=== PATIENT | male | born 1935 | race Caucasian/White ===

== ENCOUNTER 2016-10-30 15:20 | Emergency (ER) | payer OTHER ==
--- NOTE | ~2016-10-30 | CT4 ---
[facility] A Service of [facility] & [facility] RADIOLOGY TEXT RESULTS PATIENT: SENDY MENARD LOCATION: [facility] : 35 UNIT #: [id number] AGE: [address]: Ari Zelaya DO SEX: M ORDER DR: [id number] [facility] [address] [place], [place] [address] [id number] E MR#: [id number] Acc #: [id number] NAME: SENDY MENARD : 1935 SEX: M STUDY DATE/TIME: 10/30/2016 19:57 UNIT: [facility] ROOM: STUDY DESCRIPTION: CT Abd and Pelv Wo Cont Attending Physician: Ari Zelaya D.O. Ordering Physician: Ari Zelaya D.O. Primary Care Physician: Paul Ibrahim M.D. MEDICAL IMAGING REPORT This report is preliminary unless electronic signature is present EXAM CT abdomen and pelvis without contrast, 10/30/16, 1957 hours. CLINICAL HISTORY 81-year-old man with upper anterior abdominal pain for [address] abdomen and pelvis, 07/13/15. TECHNIQUE Helical noncontrasted images were obtained from the lung bases through the pubic symphysis. No intravenous contrast was administered. Oral contrast was ingested. Sagittal and coronal reconstructions were performed. Total exam DLP 606 mGy-cm. This CT exam was performed with one or more of the following radiation dose reduction techniques: automatic exposure control, adjustment of mA and/or kV according to patient size, and iterative reconstruction. FINDINGS Images through the lung bases demonstrate underlying emphysematous change. There is no acute pulmonary density or pleural effusion. The distal esophagus is normal. FINDINGS Images through the abdomen demonstrate a normal appearance to the liver, spleen, pancreas and bile ducts. Gallbladder demonstrates a punctate stone or stones similar to prior study. There is no definite gallbladder wall thickening or pericholecystic fluid. The adrenal glands are normal. Noncontrasted images through the kidneys demonstrate no mass, stone or distension. There is atherosclerotic change diffusely in the abdominal aorta and its branches. There is no definite aneurysm. There is very coarse calcification at the left greater than right common iliac arteries. [facility] A Service of [facility] & [facility] RADIOLOGY TEXT RESULTS PATIENT: SENDY MENARD LOCATION: [facility] : 35 UNIT #: [id number] AGE: [address]: Ari Zelaya DO SEX: M ORDER DR: Significant stenosis cannot be excluded. The stomach is well-opacified and distended. No gastric wall thickening is seen. The question is raised of wall thickening at the gastroduodenal junction. This could be due to lack of distension; however, underlying ulcer disease or duodenitis cannot be excluded. Contrast does pass through the duodenum into nondilated small bowel distally. There is unopacified small bowel near the cecum. There is no wall thickening. No evidence of appendicitis. No colonic wall thickening. There are scattered colonic diverticula but no evidence of diverticulitis. CT pelvis demonstrates a normal appearance to the bladder. Prostate gland is enlarged measuring 6.2 x 4.7 x 5.5 cm. No discrete mass is seen. There is no definite hernia seen. There is a loop of small bowel closely apposed to the umbilicus. A small effusion in this area cannot be excluded, however, there is no distension of small bowel. IMPRESSION 1. There are no definite acute findings. There is cholelithiasis without evidence of cholecystitis. 2. Question is raised of wall thickening at the junction of the stomach and duodenum extending into the first and second portion of the duodenum. There is contrast within this area and it is moderately well distended yet the wall does appear prominent. This could indicate underlying duodenitis or perhaps underlying ulcer disease. There is no fluid or free air. 3. Normal pancreas. 4. Mild diverticulosis without evidence of diverticulitis. 5. Atherosclerotic changes of the abdominal aorta and its branches. There are very coarse calcifications at the origins of both common iliac arteries. Significant stenosis cannot be excluded. STAT * RESULT Dictated by... Vashti Haider M.D. THIS IS AN ELECTRONICALLY VERIFIED REPORT Vashti Haider M.D. at 10/30/2016 9:01 PM Hayden TD: 10/30/2016 20:17 JOB #: [id number] MEDICAL IMAGING REPORT Page 1 of 1 COPY
[~2016-10-30 15:20] MED LIST: BIOTIN1000 MCG; FISH OIL 1,0001 EAC3 PO; HAIR, SKIN & N1 EAC1 PO; LIPITOR20 MG PO; MEDROL DOSEPAK4 MG DOB; PRILOSEC PO; PRILOSEC20 M1 PO; TRAMADOL HCL50 M1 PO; VIT B-12 PO
[2016-10-30 16:47] LABS: BASOPHIL# 0.1 X10e3 (0-0.3); BASOPHIL% 0.6 % (0-2.5); EOSINOPHIL# 0.5 X10e3 (0-0.7); EOSINOPHIL% 3.9 % (0.0-7.0); HEMATOCRIT 41.4 % (38.0-50.0); HEMOGLOBIN 13.4 gm/dL (13.0-16.0); LYMPHOCYTE# 1.5 X10e3 (1.0-3.5); LYMPHOCYTE% 12.4 % (17.0-45.0); MEAN CELL VOLUME 87.5 FL (83-96); MEAN CORPUSCULAR HEMOGLOBIN 28.4 PG (28-34); MEAN CORPUSCULAR HGB CONC 32.4 g/dL (30-36); MEAN PLATELET VOLUME 9.2 FL (6.5-11.5); MONOCYTE# 1.1 X10e3 (0-1.0); MONOCYTE% 9.5 % (3.0-12.0); NEUTROPHIL# 8.6 X10e3 (1.5-7.1); NEUTROPHIL% 73.6 % (40-75); PLATELET COUNT 260 X10e3 (140-420); RED BLOOD COUNT 4.73 X10e (3.90-5.60); RED CELL DISTRIBUTION WIDTH 13.6 % (11.0-15.5); WHITE BLOOD COUNT 11.7 X10e3 (4.0-10.5)
[2016-10-30 16:54] LABS: URINE SOURCE CLEAN CATCH
[2016-10-30 16:57] LABS: DIFF IND NO
[2016-10-30 16:59] LABS: URINE APPEARANCE CLEAR; URINE BILIRUBIN NEG (NEG); URINE BLOOD NEG (NEG); URINE COLOR YELLOW; URINE GLUCOSE NEG (NEG); URINE KETONE TRACE (NEG); URINE LEUKOCYTE ESTERASE NEG (NEG); URINE NITRATE NEG (NEG); URINE PH 6.5 (5-8); URINE PROTEIN NEG (NEG); URINE SPECIFIC GRAVITY 1.024 (1.003-1.035)
[2016-10-30 17:02] LABS: POC - CKMB 2.8 ng/mL (0.0-7.9); POC - TROPONIN <0.05 ng/mL (<=0.05)
[2016-10-30 17:06] LABS: CULTURE INDICATED? NO
[2016-10-30 17:10] LABS: ALBUMIN SERUM 4.1 g/dL (3.5-5.0); ALKALINE PHOSPHATASE 102 U/L (32-92); ALT (SGPT) 24 U/L (10-40); AST (SGOT) 24 U/L (10-42); BILIRUBIN, DIRECT <0.1 mg/dL (0.0-0.2); BILIRUBIN,INDIRECT 0.5 mg/dL (0.0-0.9); BILIRUBIN,TOTAL 0.6 mg/dL (0.2-2.0); BLOOD UREA NITROGEN 30 mg/dL (9-23); BUN/CREATININE RATIO 23.07; CALCIUM SERUM 9.7 mg/dL (8.4-10.2); CARBON DIOXIDE 23 mmol/L (22-31); CHLORIDE 104 mmol/L (100-111); CREATININE SERUM 1.3 mg/dL (0.6-1.4); GLOM FILT RATE Estimated 51.2 mL/min (>60); GLUCOSE FASTING 106 mg/dL (70-110); LIPASE 27 U/L (22-51); POTASSIUM 4.5 mmol/L (3.5-5.1); PROTEIN TOTAL SERUM 7.8 g/dL (6.0-8.3); SODIUM 136 mmol/L (135-145)
== END 2016-10-30 22:00 | disposition home or self-care (01) ==
LOC: CED 15:20
PROVIDERS: Emergency Medicine
DX: R10.84 Generalized abdominal pain (principal); E78.5 Hyperlipidemia, unspecified; J44.9 Chronic obstructive pulmonary disease, unspecified; Z88.0 Allergy status to penicillin; Z98.890 Other specified postprocedural states
CPT/HCPCS: 36415; 74176; 80048; 80076; 81003; 82553; 83605; 83690; 84484; 85025; 96374; 96375; 99284; J2270; J2405

== ENCOUNTER 2016-11-04 12:05 | Inpatient (IN) | payer OTHER ==
--- NOTE | ~2016-11-04 | CR72 ---
[facility] A Service of [facility] & [facility] RADIOLOGY TEXT RESULTS PATIENT: SENDY MENARD LOCATION: [address] : 35 UNIT #: [id number] AGE: [address]: Jaylen Canada MD SEX: M ORDER DR: [id number] [facility] [address] [place], [place] [address] [id number] I MR#: [id number] Acc #: [id number] NAME: SENDY MENARD. : 1935 SEX: M STUDY DATE/TIME: 11/10/2016 5:46 UNIT: [facility] ROOM: [facility] STUDY DESCRIPTION: CR Chest Single View Portable Attending Physician: Jaylen Canada M.D. Ordering Physician: Porter Glez M.D. Primary Care Physician: Paul Ibrahim M.D. MEDICAL IMAGING REPORT This report is preliminary unless electronic signature is present EXAM Portable AP view of the chest COMPARISON November 09, 2016, November 07, 2016, November 06, 2016 INDICATIONS 81-year-old male with respiratory failure for 6 days. Ongoing sepsis requiring ventilatory support. Endotracheal tube placement. FINDINGS AND IMPRESSION Endotracheal tube appears grossly stable with the tip located approximately 3.3 cm above the clair. Right internal jugular catheter is grossly stable with the tip terminate in the lower SVC. Cardiomediastinal silhouette is stable and within normal limits. No convincing evidence of pneumothorax or pleural effusion. There is slight increased interstitial prominence in the left lung base possibly technical in nature, or reflective of mild atelectasis or bronchovascular crowding. Dictated by... Franco Shaw M.D. THIS IS AN ELECTRONICALLY VERIFIED REPORT Franco Shaw M.D. at 11/16/2016 7:23 AM Melissa TD: 11/10/2016 07:26 JOB #: [id number] MEDICAL IMAGING REPORT Page 1 of 1 COPY
--- NOTE | ~2016-11-04 | CT71 ---
[facility] A Service of [facility] & [facility] RADIOLOGY TEXT RESULTS PATIENT: SENDY MENARD LOCATION: [address] : 35 UNIT #: [id number] AGE: [address]: Jaylen Canada MD SEX: M ORDER DR: [id number] [facility] [address] [place], [place] [address] [id number] I MR#: [id number] Acc #: [id number] NAME: SENDY MENARD. : 1935 SEX: M STUDY DATE/TIME: 11/10/2016 9:49 UNIT: [facility] ROOM: [facility] STUDY DESCRIPTION: CT Head Wo Contrast Attending Physician: Jaylen Canada M.D. Ordering Physician: Terrence Murry M.D. Primary Care Physician: Paul Ibrahim M.D. MEDICAL IMAGING REPORT This report is preliminary unless electronic signature is present EXAM CT head 11/10/2016 HISTORY Cardiac arrest 11/09/2016. Then, right upper quadrant pain since 11/06/2016. TECHNIQUE CT head performed skull base through vertex without intravenous contrast. This CT exam was performed with one or more of the following radiation dose reduction techniques: automatic exposure control, adjustment of mA and/or kV according to patient size, and iterative reconstruction. COMPARISON Comparison 10/05/2013. FINDINGS Study degraded by streak artifact from monitoring equipment overlying the patient (not removed prior to examination). The brainstem is unremarkable. The cerebellum and cerebral hemispheres show normal weaver matter-white matter differentiation. No hemorrhage. No evidence of acute cortical ischemia. Midline structures are nondisplaced. The basal ganglia are intact. The ventricles, cisterns and sulci show mild generalized enlargement consistent with mild generalized atrophy. No intra- or extraaxial mass effect or abnormal intracranial fluid collections. Cavernous carotid and distal vertebral arterial calcifications. There is oral intubation. Intraorbital soft tissues unremarkable. No fracture. Air-fluid levels, bilateral frontal sinuses. Extensive opacification of ethmoid air cells. Prominent air-fluid levels, bilateral maxillary and sphenoid sinuses. Some air-fluid levels in the mastoid air cells as well. No acute-appearing bony abnormality. IMPRESSION [facility]. [facility] A Service of [facility] & [facility] RADIOLOGY TEXT RESULTS PATIENT: SENDY MENARD LOCATION: [facility] CICCU2-03 : 35 UNIT #: [id number] AGE: [address]: Jaylen Canada MD SEX: M ORDER DR: 1. No acute abnormality is seen in the brain. If the patient has ongoing neurologic symptoms, consider follow up imaging, preferably with MRI, if the patient is a candidate. 2. Mild generalized atrophy. 3. Cavernous carotid and distal vertebral arterial calcifications. 4. Air-fluid levels throughout the visualized paranasal sinuses. Tiny air-fluid levels in bilateral mastoid air cells. Correlate with any clinical indications of inflammation/sinusitis. Dictated by... Brandan Hawthorne M.D. THIS IS AN ELECTRONICALLY VERIFIED REPORT Brandan Hawthorne M.D. at 11/11/2016 6:12 PM MASHA/adam TD: 11/10/2016 11:20 JOB #: [id number] MEDICAL IMAGING REPORT Page 1 of 1 COPY
--- NOTE | ~2016-11-04 | EKG ---
PATIENT: SENDY MENARD UNIT #: [id number] Ventricular Rate: 106 BPM Atrial Rate: 106 BPM P-R Interval: 200 ms QRS Duration: 76 ms Q-T Interval: 298 ms QTC Calculation(Bezet): 395 ms P Midland: 75 degrees Calculated R Midland: 65 degrees Calculated T Mid[place]: 65 degrees Diagnosis Line: Sinus tachycardia Diagnosis Line: Low voltage QRS Diagnosis Line: Borderline ECG Diagnosis Line: When compared with ECG of 11-NOV-2016 06:25, Diagnosis Line: (unconfirmed) Diagnosis Line: No significant change was found Diagnosis Line: Confirmed by RENE DICKSON MD ([id number]) on Diagnosis Line: 11/12/2016 4:14:21 PM INTERPRETING MD: EYAL
--- NOTE | ~2016-11-04 | CO ---
Unit #: [id number] #: [id number] Patient: SENDY MENARD [id number] [address] [address] [id number] I MR#: [id number] NAME: SENDY MENARD. ROOM: [facility] Age: 81 Sex: M Admission Date: 11/04/2016 : 1935 Attending Physician: Jaylen Canada M.D. Primary Care Physician: Paul Ibrahim M.D. CONSULTATION REPORT REASON FOR CONSULTATION Critical care management. HISTORY OF PRESENT ILLNESS The patient is an 81-year-old male who presented to the hospital with a complaint of abdominal pain and decreased p.o. intake. He was diagnosed with acute cholecystitis and cholelithiasis and underwent open cholecystectomy. The patient is currently on a ventilator. I am seeing him at the bedside. He is sedated and intubated. PAST MEDICAL HISTORY 1. Incarcerated abdominal hernia. 2. Goodman esophagus. 3. Diverticulosis. 4. Bronchitis. 5. Arthritis. 6. Chronic obstructive pulmonary disease. SOCIAL HISTORY Smoker. Drinks alcohol. FAMILY HISTORY None as per record. ALLERGIES Penicillin causing rashes. CURRENT MEDICATIONS 1. Lipitor. 2. Bentyl. 3. B12. 4. Fish oil. 5. Vancomycin. 6. Flagyl. 7. Lopressor. 8. Protonix. 9. Lipitor. REVIEW OF SYSTEMS Unobtainable. PHYSICAL EXAMINATION VITALS: Temperature 98, pulse 67, respiratory rate 16, blood pressure 131/40. Unit #: [id number] #: [id number] Patient: SENDY MENARD HEENT: Pupils equally round and reactive to light and accommodation. NECK: Supple. No jugular venous distension. CHEST: Bilateral air entry. Bilateral mild rhonchi. ABDOMEN: Nontender and soft. Bowel sounds positive. EXTREMITIES: No edema. SKIN: No rashes. No ulcers. LYMPH: No lymphadenopathy. NEUROLOGIC: Awake, alert and oriented. No neurologic deficits. DIAGNOSTIC STUDIES IMAGING: Chest x-ray showed no infiltrates or effusion. LABORATORY: Blood gas, pH 7.12, pCO2 62, pO2 498. Creatinine 2.1, sodium 130, potassium 5.3. White blood cell count 20, hemoglobin 11, hematocrit 36, platelets 372. ASSESSMENT Acute postoperative respiratory failure. Metabolic and respiratory acidosis status post cholecystectomy. Sepsis. Acute kidney injury. PLAN Admit the patient. IV fluids as per nephrology. Broad spectrum IV antibiotics. GI and DVT prophylaxis. Bronchodilator. Sedation as per protocol. The patient will be closely monitored. Please see orders for detailed plan. Thank you very much for this consultation. We will continue to monitor the patient. Dictated by... Fela Edwards/nikki TD: 11/06/2016 08:07 JOB #: [id number] CONSULTATION REPORT Page 1 of 1 X Porter Glez MD X CONSULTATION REPORT
--- NOTE | ~2016-11-04 | CO ---
Unit #: [id number] #: [id number] Patient: SENDY MENARD [id number] [address] [place], [place] [address] [id number] I MR#: [id number] NAME: SENDY MENARD. ROOM: [facility] Age: 81 Sex: M Admission Date: 11/04/2016 : 1935 Attending Physician: Jaylen Canada M.D. Primary Care Physician: Paul Ibrahim M.D. Consultation Date: 11/04/2016 CONSULTATION REPORT REASON FOR CONSULTATION Preop surgical clearance. HISTORY OF PRESENT ILLNESS This is an 81-year-old white male with a prior medical history of high cholesterol and ventral hernia repair with mesh in 04/2016. He was evaluated in the ER several days ago for right upper quadrant abdominal pain, where a CT of the abdomen revealed cholelithiasis and cholecystitis as well as mild diverticulosis. He returned to the ER today with complaints of increasing abdominal pain and nausea. There are plans to proceed with cholecystectomy. He denies a prior history of cardiac disease. Denies hypertension or diabetes mellitus. He is a reformed smoker of 1 pack per day, who quit about 10 to 15 years ago. Reports he does have recurrent bronchitis. Denies chest pain, tightness, or pressure. Denies palpitations. PAST MEDICAL HISTORY 1. Hyperlipidemia. 2. Bronchitis. 3. Benign polyps. 4. Goodman esophagus. 5. GERD. PAST SURGICAL HISTORY 1. Open umbilical hernia repair with mesh in 04/2016. 2. EGD and colonoscopy in 09/2015. 3. Right arm fracture repair. SOCIAL HISTORY Reformed smoker, quit 10 to 15 years ago. He does drink alcohol approximately 3 to 4 beers a week. Denies illicit drug use. FAMILY HISTORY Brother, age 71, had an MO in his 60s. ALLERGIES Penicillin. HOME MEDICATIONS Lipitor 20 mg p.o. daily, Bentyl 10 mg p.o. q.i.d. as needed for stomach pain, fish oil 300 mg p.o. daily, and vitamin B 1 tab p.o. daily. Unit #: [id number] #: [id number] Patient: SENDY MENARD REVIEW OF SYSTEMS Positive for intermittent shortness of air. Positive for nausea and decreased appetite. Negative for chest pain, tightness, or pressure. Negative for palpitations. Positive for bilateral calf pain with activity. PHYSICAL EXAMINATION VITAL SIGNS: Temperature 97.9, heart rate 95, respiratory rate 20, blood pressure 127/74, height 68 inches, and weight 70 kg. GENERAL: This is a pleasant 81-year-old male, resting in bed, in no acute distress. HEENT: Head is atraumatic and normocephalic. Pupils are equal and round. Mucous membranes are moist. NECK: Supple. Trachea is midline. No carotid bruits. Negative for JVD. LUNGS: Clear and diminished in bases. Nonlabored respirations. CARDIOVASCULAR: S1, S2. Normal size. Regular rate and rhythm. No significant murmurs, rubs, or gallops heard. ABDOMEN: Soft, tender in right upper quadrant. Diffuse bowel sounds. EXTREMITIES: Absent pedal pulses on the right. Normal pedal pulses on the left. No pedal edema. No cyanosis. NEUROLOGIC: Alert and oriented x3. Moves all extremities equally and follows commands without difficulty. DIAGNOSTIC STUDIES LABORATORY RESULTS: Sodium 131, potassium 4.1, chloride 93, BUN 49, creatinine 2, and glucose 172. Hemoglobin 11.7, hematocrit 36.3, white blood cell count 20.3, and platelets 203. AST 21, ALT 14, and alkaline phosphatase 74. IMAGING STUDIES: Chest x-ray shows hyperinflation with scattered calcified granulomatous changes. Ultrasound of the gallbladder shows a sludge with tiny gallstones. CARDIOVASCULAR STUDIES: EKG shows normal sinus rhythm with nonspecific T-wave abnormalities in inferior leads and poor R-wave progression. ASSESSMENT 1. Acute cholecystitis. 2. Chronic obstructive pulmonary disease. 3. Hyperlipidemia. 4. Acute kidney injury. PLAN 1. Okay to proceed with surgery with a moderate, but acceptable risk from a cardiovascular standpoint. 2. IV fluids, elevated creatinine could be due to dehydration. 3. Continue statins. 4. Plan for Lexiscan Cardiolite stress test after recovery from surgery. Thank you for asking us to see this patient. We appreciate the consult. Dictated by... Shirin Reyez APRN for Fela Zapata/jen TD: 11/06/2016 08:51 JOB #: [id number] Unit #: [id number] #: [id number] Patient: SENDY MENARD CONSULTATION REPORT Page 1 of 1 X X CONSULTATION REPORT
--- NOTE | ~2016-11-04 | CR72 ---
[facility] A Service of [facility] & [facility] RADIOLOGY TEXT RESULTS PATIENT: SENDY MENARD LOCATION: [facility] : 35 UNIT #: [id number] AGE: [address]: Paul Lopez MD SEX: M ORDER DR: [id number] [facility] [address] [place], [place] [address] [id number] E MR#: [id number] Acc #: [id number] NAME: SENDY MENARD : 1935 SEX: M STUDY DATE/TIME: 11/04/2016 UNIT: [facility] ROOM: STUDY DESCRIPTION: CR Chest Single View Portable Attending Physician: Paul Lopez M.D. Ordering Physician: Paul Lopez M.D. Primary Care Physician: Paul Ibrahim M.D. MEDICAL IMAGING REPORT This report is preliminary unless electronic signature is present EXAM Chest portable 11/04/2016 1252 hours. HISTORY 81-year-old man with shortness of air for 1 week. History of COPD. COMPARISON 08/13/2014 FINDINGS Portable upright chest demonstrates normal cardiac, mediastinal and hilar contours. The lungs are hyperinflated with stable calcified granulomata. No definite acute pulmonary density or pleural effusion. IMPRESSION Stable pulmonary hyperinflation with scattered calcified granulomatous changes. No definite pneumonia, edema or pleural effusions seen. Dictated by... Vashti Haider M.D. THIS IS AN ELECTRONICALLY VERIFIED REPORT Vashti Haider M.D. at 11/04/2016 5:41 PM Maryanne TD: 11/04/2016 15:42 JOB #: [id number] MEDICAL IMAGING REPORT Page 1 of 1 COPY
--- NOTE | ~2016-11-04 | CR71 ---
[facility] A Service of [facility] & [facility] RADIOLOGY TEXT RESULTS PATIENT: SENDY MENARD LOCATION: [facility] CICCU2-10 : 35 UNIT #: [id number] AGE: [address]: Jaylen Canada MD SEX: M ORDER DR: [id number] [facility] [address] [place], [place] [address] [id number] I MR#: [id number] Acc #: [id number] NAME: SENDY MENARD. : 1935 SEX: M STUDY DATE/TIME: 11/05/2016 14:42 UNIT: [facility] ROOM: 471 STUDY DESCRIPTION: CR Chest Single View Attending Physician: Jaylen Canada M.D. Ordering Physician: Rusty Patino M.D. Primary Care Physician: Paul Ibrahim M.D. MEDICAL IMAGING REPORT This report is preliminary unless electronic signature is present EXAM Portable chest HISTORY Shortness of air today. ETT placement. FINDINGS ETT tip is 3.5 cm above the clair. Cardiac and mediastinal contours are within normal limits and stable compared to earlier today. No infiltrates or effusions are identified. Dictated by... Jason Arellano M.D. THIS IS AN ELECTRONICALLY VERIFIED REPORT Jason Arellano M.D. at 11/05/2016 11:10 PM BEHZAD/jerry TD: 11/05/2016 16:43 JOB #: [id number] MEDICAL IMAGING REPORT Page 1 of 1 COPY
--- NOTE | ~2016-11-04 | OR ---
Unit #: [id number] #: [id number] Patient: SENDY MENARD T [id number] [address] [place], [place] [address] [id number] MR#: [id number] NAME: SENDY MENARD ROOM: [facility] Date of Procedure: 11/09/2016 Admission Date: 11/04/2016 Surgeon: Paul Medrano M.D. : 1935 Attending Physician: Jaylen Canada M.D. Primary Care Physician: Paul Ibrahim M.D. OPERATIVE REPORT PREOPERATIVE DIAGNOSIS Acute upper gastrointestinal bleed resulting in cardiac arrest. POSTOPERATIVE DIAGNOSES Thrombus in the cardia, fundus, and antrum of the stomach. No active bleeding seen. Mucosal abnormality of the distal esophagus. ANESTHESIA The patient was on fentanyl sedation. INDICATIONS FOR PROCEDURE An 81-year-old gentleman, the patient on the floor and had a cardiac arrest during the resuscitation when he was intubated, he vomited bright red blood. Labs at that time showed a hemoglobin of 6.5. On admission, his hemoglobin was 13.8. His coags were noted to be normal. He was resuscitated and brought to the intensive care unit. He is now hemodynamically stabilized, but he is requiring pressor agent. We plan on doing an urgent endoscopy to see if there is an active bleeding site that could be controlled. DESCRIPTION OF PROCEDURE The patient was seen in ICU bed 3. He was intubated and sedated. I flushed his NG tube until I could not get back any further bloody drainage and then removed the NG tube. The endoscope was passed through the oral cavity and under direct vision, we identified the esophagus, passed through the esophagus into the stomach. Upon insufflating the stomach, there was thrombus from the cardia down into the antrum, and through the pylorus to the duodenal bulb. On careful inspection of all mucosal surfaces, no active bleeding or bleeding source could be identified. There was no free fluid. It was all thrombus at this time. I decompressed the stomach by suctioning out all the air and as I came back in the distal esophagus, there was some mucosal abnormalities and the patient does have a history of Goodman mucosa, but at this time in the acute situation, we did not do any biopsies. The larynx was not visualized, but the endotracheal tube was well positioned. The patient will be left in the ICU and continued resuscitation undertaken. We will plan on repeating an EGD in 48 hours after the bleeding is stabilized and hopefully the clot has begun to mobilize. Dictated by... Unit #: [id number] #: [id number] Patient: SENDY MENARD Fela Kimball/jen TD: 11/10/2016 05:18 JOB #: [id number] OPERATIVE REPORT Page 1 of 1 X Paul Medrano MD X PROCEDURE OPERATIVE NOTE
--- NOTE | ~2016-11-04 | A ---
[facility] Nutrition Therapy DATE: 11/06/16 Patient: SENDY MENARD Physician: SABINO Address: [address] [place] [address] Room/Bed: [address], Zip: [place] [address] Admit Date: 11/04/16 Date of : 35 Height: 5 8 Weight: 154 70 NUTRITIONAL ASSESSMENT: REASON: NPO IN ICU, ON VENT PATIENT ADMITTED FOR ABDOMINAL PAIN, CHOLECYSTITIS, CHOLELITHIASIS PMH: ESOPHAGITIS, DIVERTICULOSIS, HLD, COPD Anthropometrics: HT: 68", WT: 154#, BMI: 23.4 Labs: 11/06/16- GLU: 154, BUN: 60, CREA: 2.8, CA: 7.5, ALB: 1.9, GFR: 20.2 Meds: VANCOMYCIN, NACL, 5% DEXTROSE, VERSED, MORPHINE I/O & Bowel function: 4080/1805 Skin Integrity: INTACT Estimated Nutrition Needs: KCAL: 25-30KCAL/KG (1880-8813) PROTEIN: 1.0-1.2GM/KG (70-84) FLUIDS: 1ML/KCAL OR PER MD ORDERS Assessment: PATIENT IS AN 81 Y/O MALE ADMITTED FOR ABDOMINAL PAIN, CHOLECYSTITIS, AND CHOLELITHIASIS. PATIENT IS S/P CHOLECYSTECTOMY AND HAD ACUTE POST-OP RESPIRATORY FAILURE, METABOLIC AND RESPIRATORY ACIDOSIS, SEPSIS, AND ALYX. HE IS CURRENTLY ON THE VENTILATOR IN THE ICU. PATIENT HAD FAMILY AT BEDSIDE THAT STATED PATIENT HAD A ~15# WEIGHT LOSS OVER LAST 2-3 WEEKS D/T DECREASED APPETITE AND PO INTAKES. PATIENT DOES NOT HAVE ANY SKIN BREAKDOWN ATT. PRIOR TO ADMIT PATIENT HAD BEEN AMBULATORY AND A/O X3. DISCUSSED PATIENT WITH NURSING AND DR. MCGINNIS. IT IS UNCLEAR IF PATIENT WILL NEED ENTERAL NUTRITION INTERVENTION ATT, HOWEVER PLEASE SEE BELOW FOR RECOMMENDATIONS IF NECESSARY. Dx: INADEQUATE NUTRIENT INTAKE R/T CURRENT CONDITION AEB NPO STATUS Intervention: NPO DIET, MEDS/FLUIDS PER , RD ASSESSMENT Monitoring, Evaluation and Goals: 1. PREVENT, CORRECT MICRO/MACRO NUTRIENT DEFICIENCIES 2. INITIATE ENTERAL NUTRITION IF NECESSARY MONITOR: WEIGHTS, LABS, I/Os [facility] Nutrition Therapy DATE: 11/06/16 Patient: SENDY MENARD Physician: SABINO Address: [address] [place] [address] Room/Bed: [address], Zip: [place] [address] Admit Date: 11/04/16 Date of : 35 Height: 5 8 Weight: 154 70 Recommendations: 1. IF ENTERAL NUTRITION WARRANTED BEGIN ALTERNATIVE NUTRITION SUPPORT OF JEVITY 1.5 @ 20ML/HR. ADVANCE 10ML Q 6 HOURS TO A GOAL RATE OF 55ML/HR -PROVIDES: 1980 KCALS / 84GM PROTEIN / 1003ML FLUID -ADD FREE WATER FLUSHES OF 175ML Q 4 HOURS OR PER MD ORDERS 2. IF PATIENT EXTUBATED, ONCE MEDICALLY FEASIBLE ADVANCE DIET TOLERATED RD TO F/U PER PROTOCOL AND PRN R/T PATIENT MOD/SEVERELY COMPROMISED Respectfully, LISA DOMINGUEZ, RD, LD Food and Nutritional Services [facility] cc: client file
--- NOTE | ~2016-11-04 | OR ---
Unit #: [id number] #: [id number] Patient: SENDY MENARD [id number] [address] [place], [place] [address] [id number] Nasra MR#: [id number] NAME: SENDY MENARD. ROOM: [facility] Date of Procedure: 11/05/2016 Admission Date: 11/04/2016 Surgeon: Brandan Day M.D. : 1935 Attending Physician: Jaylen Canada M.D. Primary Care Physician: Paul Ibrahim M.D. OPERATIVE REPORT PREOPERATIVE DIAGNOSIS Acute cholecystitis. POSTOPERATIVE DIAGNOSIS Perforated gallbladder with extrahepatic abscess. PROCEDURES PERFORMED 1. Diagnostic laparoscopy. 2. Drainage of extrahepatic abscess. 3. Laparoscopic cholecystectomy. SCUBA DIVER None. ANESTHESIA General endotracheal anesthesia. ESTIMATED BLOOD LOSS 50 mL. IV FLUIDS 1 L crystalloid. COMPLICATIONS None. INDICATIONS FOR PROCEDURE The patient is an 81-year-old gentleman who presents with right upper quadrant abdominal pain. Signs and symptoms were consistent with acute cholecystitis. DESCRIPTION OF PROCEDURE The patient was taken to the operating theater and placed in supine position. General anesthesia was induced. His abdomen was prepped and draped. A 5-mm Optiview trocar was placed in the right upper quadrant without difficulty. The abdomen was insufflated to 15 mmHg with CO2. Under direct vision, I placed a 5-mm port at the umbilicus. It came obvious that this was a perihepatic situation. There was bile staining what appeared to be an abscess over the dome of the liver. As we break this up using a laparoscopic instrument, I identified what appeared to be a perforation in the dome of the gallbladder. I placed a subxiphoid 10 mm, right lateral 5 mm port. The gallbladder was retracted up over the Unit #: [id number] #: [id number] Patient: SENDY MENARD liver. We dissected the gallbladder out. I identified the cystic duct. Its junction with the gallbladder was confirmed. It was thus skeletonized, doubly hemoclipped and divided. The cystic artery laid immediately posterior. This was skeletonized, doubly hemoclipped and divided. The gallbladder was removed from the gallbladder bed. Bovie electrocautery placed into an Endobag and removed. I then irrigated thoroughly with normal saline and aspirate all fluids dry. Cody-Marie drain was then placed in the bed of the liver. Dictated by... Fela Beckett/jen TD: 11/05/2016 23:08 JOB #: [id number] OPERATIVE REPORT Page 1 of 1 X Bradnan Day MD X PROCEDURE OPERATIVE NOTE
--- NOTE | ~2016-11-04 | EKG ---
PATIENT: SENDY MENARD UNIT #: [id number] Ventricular Rate: 126 BPM Atrial Rate: 125 BPM QRS Duration: 68 ms Q-T Interval: 300 ms QTC Calculation(Bezet): 434 ms Calculated R [place]: 57 degrees Calculated T [place]: 77 degrees Diagnosis Line: Sinus tachycardia Diagnosis Line: Low voltage QRS Diagnosis Line: Nonspecific ST abnormality Diagnosis Line: Abnormal ECG Diagnosis Line: When compared with ECG of 04-NOV-2016 12:57, Diagnosis Line: QRS voltage has decreased Diagnosis Line: ventricular rate is faster Diagnosis Line: Confirmed by LISA JAMES MD ([id number]) on 11/10/2016 Diagnosis Line: 7:38:03 AM INTERPRETING MD: ERIKA CAIN
--- NOTE | ~2016-11-04 | FU ---
[facility] Nutrition Therapy DATE: 11/11/16 Patient: SENDY MENARD Physician: SABINO Address: [address] [place] [address] Room/Bed: [address], Zip: [place] [address] Admit Date: 11/04/16 Date of : 35 Height: 5 8 Weight: 174 79 NUTRITION MONITORING/FOLLOW-UP: Reason: PT SEEN FOR TPN EVAL/FOLLOW-UP DX: ABD PAIN, CHOLECYSTITIS Anthropometrics: 5'8", WT: 174# (79 KG), BMI: 26.5 -154# ADMIT Labs: GLU: 120, BUN: 83, CREAT: 4.1, CA+:7.1, ALB: 1.7, AST: 84, ALT: 70, PHOS: 5.0 (ELEVATED), GFR: 12.8 Meds: FENTANYL, VERSED, ZOFRAN, PHENERGAN, TPN, PROTONIX I&O's: 5325/200 Skin: NO KNOWN ISSUES Estimated Nutrition Needs: 4816-0715 KCAL INCREASED PROTEIN NEEDS 2' PT ON HD: 84-105 G PRO(1.2-1.5 G/KG BW) Assessment: RD TO FOLLOW ON 11/12/16 Respectfully, Gillian Sheffield, RD, LD Food and Nutritional Services [facility] cc: client file
--- NOTE | ~2016-11-04 | CR72 ---
[facility] A Service of [facility] RADIOLOGY TEXT RESULTS PATIENT: SENDY MENARD LOCATION: [address] : 35 UNIT #: [id number] AGE: [address]: Jaylen Canada MD SEX: M ORDER DR: [id number] [facility] [address] [facility]. [place], [place] [address] [id number] I MR#: [id number] Acc #: [id number] NAME: SENDY MENARD. : 1935 SEX: M STUDY DATE/TIME: 11/10/2016 20:35 UNIT: [facility] ROOM: [facility] STUDY DESCRIPTION: CR Chest Single View Portable Attending Physician: Jaylen Canada M.D. Ordering Physician: Terrence Murry M.D. Primary Care Physician: Paul Ibrahim M.D. MEDICAL IMAGING REPORT This report is preliminary unless electronic signature is present EXAM Single view chest INDICATIONS Hypoxia for 1 day. Shortness of air. FINDINGS Single portable AP view of the chest compared to 11/10/2016 at 11:19. Endotracheal tube and left IJ remain in place. The right IJ has been removed. No pneumothorax. Bibasilar airspace opacities and/or small effusions are similar to the prior study. IMPRESSION 1. Interval removal of the right IJ central line. No pneumothorax. 2. Otherwise, no significant change. Dictated by... Benjamin Nj M.D. THIS IS AN ELECTRONICALLY VERIFIED REPORT Benjamin Nj M.D. at 11/11/2016 1:17 PM RPC/sharan TD: 11/10/2016 21:54 JOB #: [id number] MEDICAL IMAGING REPORT Page 1 of 1 COPY
--- NOTE | ~2016-11-04 | CO ---
Unit #: [id number] #: [id number] Patient: SENDY DOMINIQUE [id number] [address] [place], [place] [address] [id number] I MR#: [id number] NAME: SENDY DOMINIQUE. ROOM: 47 Age: 81 Sex: M Admission Date: 11/04/2016 : 1935 Attending Physician: Jaylen Canada M.D. Primary Care Physician: Paul Ibrahim M.D. Consultation Date: 11/04/2016 CONSULTATION REPORT REASON FOR CONSULTATION 1. Cholelithiasis. 2. Cholecystitis. 3. Right upper quadrant pain. HISTORY OF PRESENT ILLNESS Thank you very much for asking us to see Mr. Dominique. He is an 81-year-old, white male whose past surgical history is remarkable for an open umbilical hernia repair with mesh by Dr. Marroquin in April 2016. He had upper and lower endoscopy performed by Dr. Bernal in September 2015 with a finding of several benign polyps and Goodman esophagus and evidence of gastroesophageal reflux disease. He was seen in the emergency room several days ago for right upper quadrant pain. A CT scan showed cholelithiasis without evidence of cholecystitis and possible wall thickening of the junction of the stomach and duodenum. There was mild diverticulosis. The patient's pain has worsened and he came to the emergency room for further evaluation. Ultrasound today reveals cholelithiasis and a normal gallbladder wall and common bile duct. He is very tender in the right upper quadrant. He presents at this time for further evaluation and treatment. ALLERGIES Penicillin. MEDICATIONS Lipitor. PAST SURGICAL HISTORY Umbilical hernia repair with mesh and right arm fracture repair. PAST MEDICAL HISTORY COPD. SOCIAL HISTORY Positive for alcohol use. No tobacco use. REVIEW OF SYSTEMS Negative, except for above. IMMUNIZATION STATUS Unknown. FAMILY HISTORY Noncontributory. Unit #: [id number] #: [id number] Patient: SENDY DOMINIQUE PHYSICAL EXAMINATION GENERAL APPEARANCE: Well developed, somewhat ill-appearing, white male. Awake, alert, and oriented. VITAL SIGNS: Temperature 98.8, pulse 99, respirations 18, and blood pressure 85/47. NECK: Supple. No thyromegaly or adenopathy. BACK: No CVA or spinous tenderness. ABDOMEN: Very tender in the right upper quadrant with guarding. No masses are palpable. There is no significant tenderness on the left side, epigastric area, or the lower abdomen. DIAGNOSTIC STUDIES LABORATORY: Studies reveal the patient to have a CMP that shows a glucose of 172, BUN 49, creatinine 2, sodium 131, chloride 93, and normal liver function studies. Lactic acid level is 1.6. White count is 28.3 with a hemoglobin of 11.7 and hematocrit 36.3. Urinalysis is negative nitrites and negative leukocyte esterase. IMPRESSION This is an 81-year-old, white male with gallstones, but with significant right upper quadrant pain. We feel he most likely has cholecystitis. We have recommended IV fluids, IV antibiotics, and proceed with laparoscopic cholecystectomy in the a.m. All the risks and benefits of the procedure have been fully explained to the patient in detail including the risks of bleeding, infection, common bile duct injury, choledochoduodenostomy, conversion to an open procedure, additional surgery, (1) , , and other risks. Patient and daughter understand completely and requests we proceed. We will have Dr. Hernandez see the patient for cardiac clearance and Dr. Cosmo Diaz to see the patient for elevated BUN and creatinine. Dictated by... Fela Venegas/kaelyn TD: 11/05/2016 07:46 JOB #: [id number] CONSULTATION REPORT Page 1 of 1 X Jaylen Canada MD X CONSULTATION REPORT
--- NOTE | ~2016-11-04 | CR72 ---
[facility] A Service of [facility] & [facility] RADIOLOGY TEXT RESULTS PATIENT: SENDY MENARD LOCATION: [address] : [birth year] UNIT #: [id number] AGE: [address]: Jaylen Canada MD SEX: M ORDER DR: [id number] [facility] [address] [place], [place] [address] [id number] I MR#: [id number] Acc #: [id number] NAME: SENDY MENARD : 1935 SEX: M STUDY DATE/TIME: 11/10/2016 11:19 UNIT: [facility] ROOM: [facility] STUDY DESCRIPTION: CR Chest Single View Portable Attending Physician: Jaylen Canada M.D. Ordering Physician: Physician Non-Staff Primary Care Physician: Paul Ibrahim M.D. MEDICAL IMAGING REPORT This report is preliminary unless electronic signature is present EXAM Chest, portable, 11/10/2016, 1119 hours. CLINICAL HISTORY Shortness of air, central line placement today. COMPARISON 11/10/2016 FINDINGS Portable upright chest demonstrates endotracheal tube approximately 3 cm above the clair. The right IJ catheter tip is in the SVC above the level of the right atrium. New left IJ catheter tip is in the mid SVC. There is no pneumothorax. There is hazy right greater than left perihilar density, slightly increased which could represent edema, atelectasis, or developing pneumonia. IMPRESSION 1. New left IJ catheter tip terminates in the mid SVC. There is no pneumothorax. Endotracheal tube and right IJ catheter are unchanged. 2. There is slight increase in patchy density in the right mid and lower lung since yesterday since 0546 hours today. This could indicate developing pneumonia, asymmetric edema, aspiration, or atelectasis. STAT * RESULT Dictated by... Vashti Haider M.D. THIS IS AN ELECTRONICALLY VERIFIED REPORT Vashti Haider M.D. at 11/10/2016 12:49 PM [facility] A Service of [facility] RADIOLOGY TEXT RESULTS PATIENT: SENDY MENARD LOCATION: [place] [address]03 : 35 UNIT #: [id number] AGE: [address]: Jaylen Canada MD SEX: M ORDER DR: MELVIN/arian TD: 11/10/2016 11:54 JOB #: [id number] MEDICAL IMAGING REPORT Page 1 of 1 COPY
--- NOTE | ~2016-11-04 | CR72 ---
[facility] A Service of [facility] & [facility] RADIOLOGY TEXT RESULTS PATIENT: SENDY MENARD LOCATION: [address] : 35 UNIT #: [id number] AGE: [address]: Jaylen Canada MD SEX: M ORDER DR: [id number] [facility] [address] [facility] [place], [place] [address] [id number] I MR#: [id number] Acc #: [id number] NAME: SENDY MENARD. : 1935 SEX: M STUDY DATE/TIME: 11/07/2016 4:23 UNIT: [facility] ROOM: [facility] STUDY DESCRIPTION: CR Chest Single View Portable Attending Physician: Jaylen Canada M.D. Ordering Physician: Porter Glez M.D. Primary Care Physician: Paul Ibrahim M.D. MEDICAL IMAGING REPORT This report is preliminary unless electronic signature is present EXAM Portable chest HISTORY Respiratory failure status post laparoscopic cholecystectomy; endotracheal tube removal FINDINGS This portable view of the chest shows that endotracheal tube has been removed. The central venous catheter is in good position. There are no focal infiltrates. There is minimal left base atelectasis. Dictated by... Elias Hoang M.D. THIS IS AN ELECTRONICALLY VERIFIED REPORT Elias Hoang M.D. at 11/07/2016 1:53 PM FEL/to TD: 11/07/2016 12:18 JOB #: [id number] MEDICAL IMAGING REPORT Page 1 of 1 COPY
--- NOTE | ~2016-11-04 | CR72 ---
[facility] A Service of [facility] & [facility] RADIOLOGY TEXT RESULTS PATIENT: SENDY MENARD LOCATION: [place] [address] : 35 UNIT #: [id number] AGE: [address]: Jaylen Canada MD SEX: M ORDER DR: [id number] [facility] [address]. [place], [place] [address] [id number] I MR#: [id number] Acc #: [id number] NAME: SENDY MENARD. : 1935 SEX: M STUDY DATE/TIME: 11/05/2016 20:08 UNIT: [facility] ROOM: [facility] STUDY DESCRIPTION: CR Chest Single View Portable Attending Physician: Jaylen Canada M.D. Ordering Physician: Jaylen Canada M.D. Primary Care Physician: Paul Ibrahim M.D. MEDICAL IMAGING REPORT This report is preliminary unless electronic signature is present EXAM Portable chest HISTORY Central line placement today. FINDINGS Right IJ central line tip is at the junction SVC and right atrium. No pneumothorax. ETT tip is 3.5 cm above the clair. No airspace infiltrates or effusions. Dictated by... Jason Arellano M.D. THIS IS AN ELECTRONICALLY VERIFIED REPORT Jason Arellano M.D. at 11/06/2016 11:43 AM BEHZAD/aydee TD: 11/05/2016 23:27 JOB #: [id number] MEDICAL IMAGING REPORT Page 1 of 1 COPY
--- NOTE | ~2016-11-04 | CR72 ---
[facility] A Service of [facility] RADIOLOGY TEXT RESULTS PATIENT: SENDY MENARD LOCATION: [address] : 35 UNIT #: [id number] AGE: [address]: Jaylen Canada MD SEX: M ORDER DR: [id number] [facility] [address] [facility]. [place], [place] [address] [id number] I MR#: [id number] Acc #: [id number] NAME: SENDY MENARD. : 1935 SEX: M STUDY DATE/TIME: 11/06/2016 5:11 UNIT: [facility] ROOM: [facility] STUDY DESCRIPTION: CR Chest Single View Portable Attending Physician: Jaylen Canada M.D. Ordering Physician: Jaylen Canada M.D. Primary Care Physician: Paul Ibrahim M.D. MEDICAL IMAGING REPORT This report is preliminary unless electronic signature is present EXAM Portable chest INDICATION Follow up endotracheal tube. FINDINGS This portable view of the chest is compared with yesterday's study. The endotracheal tube and central venous catheter are stable and the lungs are clear. There has been no change. Dictated by... Elias Hoang M.D. THIS IS AN ELECTRONICALLY VERIFIED REPORT Elias Hoang M.D. at 11/06/2016 1:31 PM GINGER/lane TD: 11/06/2016 11:27 JOB #: [id number] MEDICAL IMAGING REPORT Page 1 of 1 COPY
--- NOTE | ~2016-11-04 | CO ---
Unit #: [id number] #: [id number] Patient: SENDY DOMINIQUE [id number] [address] [place], [place] [address] [id number] I MR#: [id number] NAME: SENDY DOMINIQUE. ROOM: 471 Age: 81 Sex: M Admission Date: 11/04/2016 : 1935 Attending Physician: Jaylen Canada M.D. Primary Care Physician: Paul Ibrahim M.D. Consultation Date: 11/05/2016 CONSULTATION REPORT REASON FOR CONSULT Renal insufficiency. Thank you very much for asking us to see this patient in consultation. Mr. Sendy Dominique is an 81-year-old male who presented to the hospital yesterday with abdominal discomfort, decreased p.o. intake, some nausea, who has had a chronic incarcerated umbilical hernia. He had a CT scan on 10/30/16 without IV contrast that showed a hernia as well as cholelithiasis. Upon presentation yesterday he was noted to have a BUN and creatinine of 49 and 2.0, potassium 4.1. We were consulted yesterday evening. The patient is alert but a little confused with some pain medicine. His daughter is at bedside. He and she state that he has never had any kidney problems that they are aware of. He occasionally takes Aleve at home for arthritis but none on a regular basis. He was noted on 10/30/16 to have a creatinine of 1.3 and I have no previous creatinines. The patient is supposed to have surgery later today for the umbilical hernia and questionable gallbladder removal. PAST MEDICAL HISTORY 1. History of chronic incarcerated umbilical hernia. 2. 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 3. History of diverticulosis. 4. History of bronchitis. 5. History of hyperlipidemia. 6. History of arthritis. 7. History of COPD. MEDICATIONS His medicines at home include: 1. Lipitor. 2. Bentyl. 3. B12. 4. Fish oil. Here, he was started on: 5. Vancomycin. 6. Azactam. 7. Flagyl. 8. Lopressor. 9. Lipitor. 10. Protonix. ALLERGIES Penicillin causing rashes. Unit #: [id number] #: [id number] Patient: SENDY DOMINIQUE SOCIAL HISTORY He was a previous smoker, none know. He drinks about three to four beers a week. FAMILY HISTORY Noncontributory. PHYSICAL EXAMINATION GENERAL: He is alert, a little confused. VITAL SIGNS: Temperature is 98.8, T-max, pulse 87 to 107, blood pressure 85 to 131/40s to 80s. He had 2300 in and out 450. HEENT: Normocephalic, atraumatic. Pupils are equal, round, reactive to light. Extraocular muscles are intact. Hearing appears to be fairly normal. Mouth is clear. No erythema, no exudate. NECK: Supple. No JVD, no adenopathy. CARDIAC: He has a regular rate and rhythm without a rub. No S3 or S4. LUNGS: Sound fairly clear today. No wheezes, rhonchi or rales. ABDOMEN: He is distended. Bowel sounds positive. Diffuse mild tenderness. No body edema. EXTREMITIES: He has no lower extremity swelling. His pulses are intact in upper and lower extremities. JOINTS: No joint pain or joint swelling. SKIN: No rashes. NEURO: He is able to move all extremities. Again, alert, a little slow and a little confused potentially but, overall, otherwise intact. : Deferred. DIAGNOSTIC STUDIES LABORATORY DATA: Laboratory data yesterday showed a sodium of 11, potassium 4.1, BUN 49, creatinine 2.0. Creatinine decreased last night to 1.78. Now, his BUN is 51, creatinine is up to 2.1, potassium 5.3, sodium 130, chloride 106, bicarb of 19, glucose 114, calcium 7.8, albumin 2.5, lactic acid 1.6. Normal liver function tests. Hemoglobin is 11.7, white count 20,300, platelets 372,000. Again, creatinine on 10/30/16 is 1.3. UA shows specific gravity 1.024, 1+ protein. He had no proteinuria last week. No RBCs, WBCs. Blood and urine culture is pending. IMAGING: Chest x-ray showed no edema, infiltrate or effusions. Gallbladder ultrasound showed sludging and a small stone. ASSESSMENT AND PLAN 1. Acute kidney injury: This gentleman has increased BUN and creatinine. Certainly could be related to volume depletion as well as possible ATN. Agree with IV fluids and will continue normal saline. Increase rate to 125 mL/hour for now. His abdomen is distended. Obviously, could be related to his abdominal process going on but also will check a bladder scan postvoid residual to rule out obstruction and place a Stewart if needed. Will check a urine eosinophil, check a random urine sodium. Check serum protein immunofixation. Check a BMP later today. Will continue to follow. The patient is on vancomycin and will not DC it for now but, when clinically indicated, would recommend DC'ing that and avoid Unit #: [id number] #: [id number] Patient: SENDY DOMINIQUE nonsteroidals, Toradol, contrast dye, vancomycin and gentamicin if possible. 2. Hyponatremia: The patient's sodium is 130, probably a hypovolemic hyponatremia versus euvolemic hyponatremia. Certainly with the history of COPD, he could have an SIADH but, again, hopefully just with some hydration and improvement of his renal failure his sodium will improve. Will check a TSH and a cortisol level in the morning. Will check again a urine sodium as well as a urine osmolality. 3. Hyperkalemia. Patient with increased potassium today, possibly related to just mild acidosis and worsening renal function. He is NPO now. He is not on any potassium supplements. Will continue normal saline. Will give one dose of Bumex, not because he is fluid overloaded but to try to help his urine output to improve his potassium prior to surgery. He will also get one dose of bicarbonate IV if available. Check a BMP later today. 4. Questionable cholelithiasis with incarcerated umbilical hernia surgery later today. 5. Goodman esophagitis: He is on PPI for now. Will continue it unless his renal function continues to worsen. Dictated by... Casey Diaz M.D. LEANNA/vilma TD: 11/05/2016 10:30 JOB #: [id number] CONSULTATION REPORT Page 1 of 1 X Jayla Diaz MD X CONSULTATION REPORT
--- NOTE | ~2016-11-04 | CR72 ---
[facility] A Service of [facility] & [facility] RADIOLOGY TEXT RESULTS PATIENT: SENDY MENARD LOCATION: [address] : 35 UNIT #: [id number] AGE: [address]: Jaylen Canada MD SEX: M ORDER DR: [id number] [facility] [address] [place], [place] [address] [id number] I MR#: [id number] Acc #: [id number] NAME: SENDY MENARD. : 1935 SEX: M STUDY DATE/TIME: 11/13/2016 05:45 UNIT: [facility] ROOM: [facility] STUDY DESCRIPTION: CR Chest Single View Portable Attending Physician: Jaylen Canada M.D. Ordering Physician: Terrence Murry M.D. Primary Care Physician: Paul Ibrahim M.D. MEDICAL IMAGING REPORT This report is preliminary unless electronic signature is present EXAM Portable chest, 11/13 at 05:45. INDICATIONS Respiratory failure and sepsis. FINDINGS AP portable chest is compared 11/12/16. Tubes and lines are unchanged and well positioned. Infiltrates in the bases, right greater than left, are again seen. On the right side, there are stable. On the left side, they are slightly improved. There is worsening infiltrate in the right upper lobe. No pneumothorax. Dictated by... Paul Helton Jr., M.D. THIS IS AN ELECTRONICALLY VERIFIED REPORT Paul Helton Jr., M.D. at 11/14/2016 3:17 AM SHIRA/kaelyn TD: 11/13/2016 09:51 JOB #: [id number] MEDICAL IMAGING REPORT Page 1 of 1 COPY
--- NOTE | ~2016-11-04 | CR72 ---
[facility] A Service of [facility] & [facility] RADIOLOGY TEXT RESULTS PATIENT: SENDY MENARD LOCATION: [address] : 35 UNIT #: [id number] AGE: [address]: Jaylen Canada MD SEX: M ORDER DR: [id number] [facility] [address] [facility]. [place], [place] [address] [id number] I MR#: [id number] Acc #: [id number] NAME: SENDY MENARD. : 1935 SEX: M STUDY DATE/TIME: 11/11/2016 16:53 UNIT: [facility] ROOM: [facility] STUDY DESCRIPTION: CR Chest Single View Portable Attending Physician: Jaylen Canada M.D. Ordering Physician: [facility] Primary Care Physician: Paul Ibrahim M.D. MEDICAL IMAGING REPORT This report is preliminary unless electronic signature is present EXAM Single view chest INDICATIONS Central line placement. Single portable AP view of the chest compared to 11/11/2016. FINDINGS There is a left IJ central line terminating over the SVC. A right central line also terminates over the SVC. No pneumothorax. Endotracheal tube remains in place. Heart and mediastinal contours are stable. There is mild basilar predominant airspace opacities, which are similar to the prior study. IMPRESSION 1. Bilateral internal jugular central lines. No pneumothorax. 2. Lower lobe predominant airspace opacities are similar to the prior exam. Dictated by... Benjamin Nj M.D. THIS IS AN ELECTRONICALLY VERIFIED REPORT Benjamin Nj M.D. at 11/12/2016 2:45 PM MARIANNA/jerry TD: 11/11/2016 18:41 JOB #: [id number] MEDICAL IMAGING REPORT Page 1 of 1 COPY
--- NOTE | ~2016-11-04 | FU ---
[facility] Nutrition Therapy DATE: 11/10/16 Patient: SENDY MENARD Physician: SABINO Address: [address] [place] [address] Room/Bed: [address], Zip: [place] [address] Admit Date: 11/04/16 Date of : 35 Height: 5 8 Weight: 173 78.5 NUTRITION MONITORING/FOLLOW-UP: Reason: PT SEEN FOR FOLLOW-UP DX: CHOLECYSTITIS, ABD PAIN Anthropometrics: 5'8", WT: 173# (79 KG), BMI: 26.3 -WEIGHTS HAVE RANGED 154-173# SINCE ADMIT (ADMIT WEIGHT: 154#?) Labs: GLU: 134, BUN: 59, CREAT: 2.5, CA+:6.8, ALB: 1.8, AST: 208, ALT: 108, NA+:147, GFR: 23.2 Meds: NACL, FENTANYL, VERSED, ZOFRAN, PHENERGAN, LIPITOR I&O's: 89259/432 Skin: BUE+ BLE + SCLERA + FACE + EYELIDS GENERAL EDEMA Estimated Nutrition Needs: 1843-5438 KCAL 70-84 G PRO Assessment: CHART REVIEWED AND EVENTS NOTED. PT SEEN FOR FOLLOW-UP. PT CONTINUES TO BE INTUBATED AND SEDATED AT TIME OF VISIT. NO PLANS IN PLACE FOR ALTERNATIVE NUTRITION SUPPORT AT THIS TIME. ?ESOPHAGEAL BLEED. (PT CURRENTLY NPO). PT WAS ON LOW FAT + HIGH PROTEIN/HIGH KCAL DIET PRIOR. NO FAMILY IN ROOM AT THIS TIME. RD TO CONTINUE TO FOLLOW. Dx: INADEQUATE NUTRIENT INTAKE R/T CURRENT CONDITION AEB NPO STATUS.-ACTIVE Intervention: 1. NPO Monitoring, Evaluation and Goals: 1. PREVENT MICRO/MACRONUTRIENT DEFICIENCIES-NOT MET 2. INITIATION OF ENTERAL NUTRITION SUPPORT (IF NECESSARY)-UNMEASURED NEW GOALS: 1. ENTERAL NUTRITION SUPPORT; INITIATED AND PROVIDE >80% ESTIMATED NUTRIENT NEEDS AT GOAL 2. WEIGHTS; PROMOTE WEIGHT MAINTENANCE 3. LABS; WNL-IN PROGRESS 4. GI; PROMOTE REGULAR GI FUNCTION MONITOR: -PLANS FOR SUPPORT -EXTUBATION [facility] Nutrition Therapy DATE: 11/10/16 Patient: SENDY MENARD Physician: SABINO Address: [address] [place] [address] Room/Bed: [address], Zip: [place] [address] Admit Date: 11/04/16 Date of : 35 Height: 5 8 Weight: 173 78.5 -LABS -WEIGHTS Recommendations: 1. ONCE MEDICALLY FEASIBLE AND PT EXTUBATED/ABLE TO TOLERATE PO INTAKE, BEGIN WITH CLEARS AND ADVANCE DIET TOLERATED TO LOW FAT DIET 2. IF PT REMAINS INTUBATED, INITIATE ENTERAL NUTRITION SUPPORT OF JEVITY 1.5 @ 20 ML/HR, ADVANCE 10 ML q 8 HOURS TO GOAL RATE OF 55 ML/HR -PROVIDES 1980 KCAL, 84 G PRO, 1003 ML FREE H20 ADD FREE H20 FLUSHES PER MD 3. IF TPN WARRENTED, CONSULT RD FOR RECOMMENDATIONS RD WILL F/U PER PROTOCOL PT IS SEVERELY COMPROMISED Respectfully, MILE QUISPE MS, RD, LD Food and Nutritional Services [facility] cc: client file
--- NOTE | ~2016-11-04 | US67 ---
[facility] A Service of [facility] RADIOLOGY TEXT RESULTS PATIENT: SENDY MENARD LOCATION: [place] [address] : 35 UNIT #: [id number] AGE: [address]: Jaylen Canada MD SEX: M ORDER DR: [id number] [place] [id number] [facility]. [place], [place] [address] [id number] E MR#: [id number] Acc #: [id number] NAME: SENDY MENARD. : 1935 SEX: M STUDY DATE/TIME: 11/04/2016 13:59 UNIT: [facility] ROOM: STUDY DESCRIPTION: Gallbladder Attending Physician: Paul Lopez M.D. Ordering Physician: Paul Lopez M.D. Primary Care Physician: Paul Ibrahim M.D. MEDICAL IMAGING REPORT This report is preliminary unless electronic signature is present EXAM Gallbladder ultrasound HISTORY Right upper quadrant pain for 1 month. Nausea. FINDINGS Ultrasound examination of the gallbladder demonstrates a small amount of echogenic gallbladder sludge and probable tiny gallstone, corresponding to finding on CT, 10/30/2016. No hepatic mass adjacent to the gallbladder fossa. Survey of the right kidney is unremarkable. Exam sensitivity is partly limited by patient respiration during the study. No gallbladder distention or wall thickening or biliary dilatation. IMPRESSION 1. Probable small amount of echogenic gallbladder sludge and tiny gallstone corresponding to a similar finding on CT, 10/30/2016. 2. No gallbladder wall thickening or gallbladder distension or biliary dilatation. The common bile duct measures 5 mm in diameter. Dictated by... Jason Arellano M.D. THIS IS AN ELECTRONICALLY VERIFIED REPORT Jason Arellano M.D. at 11/04/2016 10:51 PM BEHZAD/adam TD: 11/04/2016 17:13 JOB #: [id number] [facility] A Service of [facility] RADIOLOGY TEXT RESULTS PATIENT: SENDY MENARD LOCATION: [facility] 471-01 : 35 UNIT #: [id number] AGE: [address]: Jaylen Canada MD SEX: M ORDER DR: MEDICAL IMAGING REPORT Page 1 of 1 COPY
--- NOTE | ~2016-11-04 | FU ---
[facility] Nutrition Therapy DATE: 11/12/16 Patient: SENDY MENARD Physician: SABINO Address: [address] [place] [address] Room/Bed: [address], Zip: [place] [address] Admit Date: 11/04/16 Date of : 35 Height: 5 8 Weight: 176 80 NUTRITION MONITORING/FOLLOW-UP: Reason: TPN follow-up Dx: 81 Y.O. male admitted for ABD pain, cholecystitis Anthropometrics: ht: 5'8" wt: 176# BMI: 26 -Admit weight 154# Labs: BUN 69, Creat 3.5, Ca++ 7.4, Alb 1.8, AST 59, ALT 46, Phos 4.8, GFR 15.5 Meds: TPN, NaCl, fentanyl, versed, zofran, phenergan, protonix, BMP, heparin, Dex 5%, levophed I&O's: 5325/200. Last BM 11/09 Skin: BUE, BLE, face, eyelids, sclera; general Estimated Nutrition Needs: 1240-6020 kcal 84-105 g pro Assessment: Chart reviewed, events noted. Pt seen for TPN f/u. Pt continues to be intubated and sedated at time of visit. The pt has been started on TPN (25% Dextrose, 5% amino acids) at a rate of 75 mL/hr. Per RN report, the pt was eating PO until he coded and began vomiting blood. The pt has a possible GI bleed. The pt is now on hemodialysis as well. Please see recommendations, RD to follow. Dx: Inadequate nutrient intake r/t current condition AEB NPO status -In progress Intervention: 1. TPN Monitoring, Evaluation and Goals: 1. Prevent micro/macronutrient deficiences -Not met/In-progress 2. Enteral nutrition support; initiate and provide >80% estimated nutrient needs at goal rate -Unmeasured 3. Weights; promote weight maintenance -In progress 4. Labs; WNL -In progress 5. GI; promote regular GI function- Not met New goals: [facility] Nutrition Therapy DATE: 11/12/16 Patient: SENDY MENARD Physician: SABINO Address: [address] [place] [address] Room/Bed: [facility]2-[address] [facility], Zip: [place] [address] Admit Date: 11/04/16 Date of : 35 Height: 5 8 Weight: 176 80 1. TPN; provide >80% of estimated nutrient needs at goal rate x 24 hours. Monitor: -TPN -Labs, electrolytes -Extubation Recommendations: 1. If TPN continues to be indicated, continue with support of 25% Dextrose/5% Amino Acids at 75 mL/hr x 24 hours + no lipids. This provides 1530 non-protein kcals, 90 g protein, 1890 total kcals (GUR 4.4). Cycle lipids 20% 250 mL q other day. Pt to receive an additional 500 kcal every other day- Pt to receive 2390 total kcal on lipid days 2. Closely monitor glucose and electrolytes. 3. Once medically feasible, recommend ADHESIVE BONDING MACHINE OPERATOR evaluation for PO intake. Once tolerating PO intake, advance to clear liquid diet as tolerated. Once clears tolerated, low fiber + low fat + [address] will f/u per protocol as pt is mod/severely compromised Respectfully, GERALD JARAMILLO, METABOLIC SPECIALIST MILE QUISPE MS, RD, LD Food and Nutritional Services [facility] cc: client file
--- NOTE | ~2016-11-04 | CR72 ---
[facility] A Service of [facility] RADIOLOGY TEXT RESULTS PATIENT: SENDY MENARD LOCATION: [place] [address] : 35 UNIT #: [id number] AGE: [address]: Jaylen Canada MD SEX: M ORDER DR: [id number] [place] [id number] [facility]. [place], [place] [address] [id number] I MR#: [id number] Acc #: [id number] NAME: SENDY MENARD : 1935 SEX: M STUDY DATE/TIME: 11/11/2016 13:40 UNIT: [facility] ROOM: [facility] STUDY DESCRIPTION: CR Chest Single View Portable Attending Physician: Jaylen Canada M.D. Ordering Physician: Physician Non-Staff Primary Care Physician: Paul Ibrahim M.D. MEDICAL IMAGING REPORT This report is preliminary unless electronic signature is present EXAM Chest portable, 11/11/2016 13:40 hours HISTORY Catheter placement today COMPARISON 11/10/2016 FINDINGS Portable upright chest demonstrates stable endotracheal tube and left IJ catheter. There is a new right IJ catheter with tip in the upper to mid SVC. There is no pneumothorax. There is persistent hazy density right midlung, right lung base and left lung base slightly increased. No pneumothorax. IMPRESSION 1. Stable satisfactory positioning of the endotracheal tube and left IJ catheter. There is a new right IJ catheter with tip in the mid SVC. There is no pneumothorax. 2. There is patchy airspace density in the right midlung, right lung base and left lung base slightly increased from 11/10/2016. Dictated by... Vashti Haider M.D. THIS IS AN ELECTRONICALLY VERIFIED REPORT Vashti Haider M.D. at 11/12/2016 9:27 AM Preeti TD: 11/11/2016 14:48 JOB #: [id number] [facility] A Service of [facility] RADIOLOGY TEXT RESULTS PATIENT: SENDY MENARD LOCATION: [address] : 35 UNIT #: [id number] AGE: [address]: Jaylen Canada MD SEX: M ORDER DR: MEDICAL IMAGING REPORT Page 1 of 1 COPY
--- NOTE | ~2016-11-04 | CR72 ---
[facility] A Service of [facility] & [facility] RADIOLOGY TEXT RESULTS PATIENT: SENDY MENARD LOCATION: [address] : 35 UNIT #: [id number] AGE: [address]: Jaylen Canada MD SEX: M ORDER DR: [id number] [facility] [address] [facility]. [place], [place] [address] [id number] I MR#: [id number] Acc #: [id number] NAME: SENDY MENARD. : 1935 SEX: M STUDY DATE/TIME: 11/12/2016 5:14 UNIT: [facility] ROOM: [facility] STUDY DESCRIPTION: CR Chest Single View Portable Attending Physician: Jaylen Canada M.D. Ordering Physician: Terrence Murry M.D. Primary Care Physician: Paul Ibrahim M.D. MEDICAL IMAGING REPORT This report is preliminary unless electronic signature is present EXAM Portable chest INDICATION Follow up aspiration pneumonia and endotracheal tube. FINDINGS Today's portable view of the chest is compared with yesterday's study. The right and left central venous catheters are stable. The endotracheal tube is in good position. There are mild bilateral lower lobe infiltrates unchanged from the prior study. Dictated by... Elias Hoang M.D. THIS IS AN ELECTRONICALLY VERIFIED REPORT Elias Hoang M.D. at 11/12/2016 1:55 PM GINGER/lane TD: 11/12/2016 06:27 JOB #: [id number] MEDICAL IMAGING REPORT Page 1 of 1 COPY
--- NOTE | ~2016-11-04 | EKG ---
PATIENT: SENDY MENARD UNIT #: [id number] Ventricular Rate: 98 BPM Atrial Rate: 98 BPM P-R Interval: 164 ms QRS Duration: 90 ms Q-T Interval: 358 ms QTC Calculation(Bezet): 457 ms P [place]: 75 degrees Calculated R [place]: 66 degrees Calculated T [place]: 70 degrees Diagnosis Line: Normal sinus rhythm Diagnosis Line: Normal ECG Diagnosis Line: When compared with ECG of 11-MAY-2016 11:55, Diagnosis Line: QT has lengthened Diagnosis Line: Confirmed by LISA JAMES MD ([id number]) on 11/04/2016 Diagnosis Line: 6:58:21 PM INTERPRETING MD: ERIKA CAIN
--- NOTE | ~2016-11-04 | CR72 ---
[facility] A Service of [facility] / [facility] RADIOLOGY TEXT RESULTS PATIENT: SENDY MENARD LOCATION: [address] : 35 UNIT #: [id number] AGE: [address]: Jaylen Canada MD SEX: M ORDER DR: [id number] [facility] [address] [facility]. [place], [place] [address] [id number] I MR#: [id number] Acc #: [id number] NAME: SENDY MENARD. : 1935 SEX: M STUDY DATE/TIME: 11/09/2016 12:16 UNIT: [facility] ROOM: [facility] STUDY DESCRIPTION: CR Chest Single View Portable Attending Physician: Jaylen Canada M.D. Ordering Physician: Jaylen Canada M.D. Primary Care Physician: Paul Ibrahim M.D. MEDICAL IMAGING REPORT This report is preliminary unless electronic signature is present EXAM Chest single portable view, 11/09/2016 HISTORY Status post "lap shantel", respiratory failure, intubation. Full arrest. Former smoker. TECHNIQUE AP radiographs of chest presented. COMPARISON 11/07/2016 FINDINGS Endotracheal tube terminates in the mid thoracic trachea approximately 4 cm above clair. Right internal jugular central venous catheter terminates in superior vena cava. The heart is normal in size. The lungs are better inflated than on prior study. The left lung shows some minimal patchy and linear densities in the infrahilar region. Ill-defined hazy densities in the right infrahilar region. The appearance is nonspecific and could reflect areas of mild pneumonitis. There is no dense airspace disease. Overall, the appearance of the lungs is significantly improved compared to the prior study. Pulmonary vascular congestion no longer suggested. No vascular prominence. No pleural effusion or pneumothorax and no suspicious nodule. Dictated by... Brandan Hawthorne M.D. THIS IS AN ELECTRONICALLY VERIFIED REPORT Brandan Hawthorne M.D. at 11/09/2016 5:16 PM MASHA/rufina [facility] A Service of [facility] RADIOLOGY TEXT RESULTS PATIENT: SENDY MENARD LOCATION: [address] : 35 UNIT #: [id number] AGE: [address]: Jaylen Canada MD SEX: M ORDER DR: TD: 11/09/2016 14:28 JOB #: [id number] MEDICAL IMAGING REPORT Page 1 of 1 COPY
--- NOTE | ~2016-11-04 | EKG ---
PATIENT: SENDY MENARD UNIT #: [id number] Ventricular Rate: 115 BPM Atrial Rate: 115 BPM P-R Interval: 136 ms QRS Duration: 80 ms Q-T Interval: 294 ms QTC Calculation(Bezet): 406 ms Calculated R [place]: 57 degrees Calculated T [place]: 64 degrees Diagnosis Line: Sinus tachycardia Diagnosis Line: Low voltage QRS Diagnosis Line: Borderline ECG Diagnosis Line: When compared with ECG of 09-NOV-2016 16:49, Diagnosis Line: ST no longer elevated in Inferior leads Diagnosis Line: Confirmed by RENE DICKSON MD ([id number]) on Diagnosis Line: 11/12/2016 3:55:29 PM INTERPRETING MD: EYAL
--- NOTE | ~2016-11-04 | CT4 ---
[facility] A Service of [facility] & [facility] RADIOLOGY TEXT RESULTS PATIENT: SENDY MENARD LOCATION: [address] : 35 UNIT #: [id number] AGE: [address]: Jaylen Canada MD SEX: M ORDER DR: [id number] [facility] [address] [facility]. [place], [place] [address] [id number] I MR#: [id number] Acc #: [id number] NAME: SENDY MENARD. : 1935 SEX: M STUDY DATE/TIME: 11/10/2016 9:51 UNIT: [facility] ROOM: [facility] STUDY DESCRIPTION: CT Abd and Pelv Wo Cont Attending Physician: Jaylen Canada M.D. Ordering Physician: Terrence Murry M.D. Primary Care Physician: Paul Ibrahim M.D. MEDICAL IMAGING REPORT This report is preliminary unless electronic signature is present REVISED REPORT SEE ADDENDUM EXAM CT abdomen and pelvis without contrast. DATE 11/10/2016 HISTORY 81-year-old male status post cardiac arrest on 11/09/2016. Right upper quadrant abdominal pain since 11/06/2016. Physician's order states bleeding, distension. Additional history of EGD performed yesterday with blood clots in the esophagus. Cholecystectomy 11/04/2016. COMPARISON CT abdomen and pelvis 10/30/2016. Gallbladder ultrasound 11/04/2016. PROCEDURE 5 mm axial images from the lung bases through the lesser trochanters without intravenous or enteric contrast administration. Sagittal and coronal reformatted images were obtained. This CT exam was performed with one or more of the following radiation dose reduction techniques: automatic exposure control, adjustment of mA and/or kV according to patient size, and iterative reconstruction. FINDINGS ABDOMEN FINDINGS: The study is markedly abnormal. There is abnormal concentric thickening or inflammation of the first-second duodenal segments. In the same descending, there is high-density intraluminal fluid within the duodenum, and a large volume of high-density fluid within the stomach, worrisome for intraluminal blood products. Additionally, [facility] A Service of [facility] & [facility] RADIOLOGY TEXT RESULTS PATIENT: SENDY MENARD [facility]ATION[facility] [id number] : 35 UNIT #: [id number] AGE: [address]: Jaylen Canada MD SEX: M ORDER DR: there is an ill-defined 6.3 cm region of mottled high-density fluid and air within the gallbladder fossa measuring at least 6.3 cm, worrisome for hematoma. Free air is demonstrated within the abdomen, which could be simply related to recent surgical intervention. Additionally, there is high-density free fluid surrounding the liver, consistent with blood products. Moderate right, small to moderate left pleural effusions are present with bibasilar atelectasis. Noncontrast appearance of the liver, spleen, adrenals, and kidneys within normal limits. Mild pancreatic parenchymal atrophy. Enteric contrast is seen more distally within the colon, from previous CT examination. I have confirmed with the technologist that no enteric contrast was administered for today's examination. Advanced calcific atherosclerosis is seen within the abdominal aorta and common iliac arteries. There is diffuse body wall edema. PELVIS FINDINGS: Urinary bladder is decompressed by a Stewart catheter. Prostate does not appear enlarged. Rectum is normal. There is a small quantity of pelvic free fluid. There is diffuse body wall edema. Bilateral femoral central lines are in place. IMPRESSION 1. Abnormal examination. Please refer to the body of the report for a detailed description of findings. I have placed a STAT phone call to the physician on-call for [facility] ([phone]) to discuss the pertinent findings at the time of this dictation. I am currently awaiting a return call. Call was placed 11/10/2016 at 2:20 p.m. 2. There appears to be blood products or hematoma within the gallbladder fossa, within ascites fluid surrounding the liver, and suspected intraluminal blood products within the first-second duodenal segment and stomach. 3. The first-second duodenal segment is abnormally thickened and inflamed. 4. Free air is demonstrated within the abdomen which may simply be the result of recent surgical intervention. Given the inflammatory changes surrounding the duodenum, perforation cannot be completely excluded. 5. Recent cholecystectomy changes. 6. Extensive generalized body wall edema. 7. Moderate right, small to moderate left pleural effusions with bibasilar atelectasis. 8. Uncomplicated sigmoid diverticulosis, not included in the body of the report. [facility] A Service of [facility] & [facility] RADIOLOGY TEXT RESULTS PATIENT: SENDY MENARD LOCATION: [place] [address]- : 35 UNIT #: [id number] AGE: [address]: Jaylen Canada MD SEX: M ORDER DR: Dictated by... Afshan Phan M.D. THIS IS AN ELECTRONICALLY VERIFIED REPORT Afshan Phan M.D. at 11/10/2016 3:51 PM GENEVIEVE/arian TD: 11/10/2016 15:01 JOB #: [id number] ADDENDUM EXAM CT abdomen and pelvis 11/10/[address] Medrano and I discussed the major pertinent findings today, 11/10/2016 at 2:30 p.m. Dictated by... Afshan Phan M.D. THIS IS AN ELECTRONICALLY VERIFIED REPORT Afshan Phan M.D. at 11/12/2016 6:13 AM Maria L TD: 11/10/2016 15:10 JOB #: [id number] CC: James/aureliaision Please Delete MEDICAL IMAGING REPORT Page 1 of 1 COPY
[2016-11-04] MEDS ORDERED: PATIENT'S PHARMACY (13:28)
[2016-11-04] MEDS ORDERED: BENTYL10 MG PO (13:28)
[2016-11-04] MEDS ORDERED: LIPITOR20 MG PO (13:28)
[2016-11-04] MEDS ORDERED: CYANOCOBALAMI100 MCG PO (13:29)
[2016-11-04] MEDS ORDERED: FISH OIL300 MG PO (13:29)
[2016-11-04 14:07] LABS: POC - CKMB 2.9 ng/mL (0.0-7.9); POC - TROPONIN <0.05 ng/mL (<=0.05)
[2016-11-04 14:08] LABS: BASOPHIL% 0.1 % (0-2.5); EOSINOPHIL% 0.1 % (0.0-7.0); HEMATOCRIT 36.3 % (38.0-50.0); HEMOGLOBIN 11.7 gm/dL (13.0-16.0); LYMPHOCYTE% 4.8 % (17.0-45.0); MEAN CELL VOLUME 87.1 FL (83-96); MEAN CORPUSCULAR HEMOGLOBIN 28.2 PG (28-34); MEAN CORPUSCULAR HGB CONC 32.4 g/dL (30-36); MEAN PLATELET VOLUME 9.4 FL (6.5-11.5); MONOCYTE# 1.3 X10e3 (0-1.0); MONOCYTE% 6.3 % (3.0-12.0); NEUTROPHIL% 88.7 % (40-75); PLATELET COUNT 372 X10e3 (140-420); RED BLOOD COUNT 4.16 X10e (3.90-5.60); RED CELL DISTRIBUTION WIDTH 13.3 % (11.0-15.5); WHITE BLOOD COUNT 20.3 X10e3 (4.0-10.5)
[2016-11-04 14:11] LABS: DIFF IND YES
[2016-11-04 14:33] LABS: ALBUMIN SERUM 3.7 g/dL (3.5-5.0); BILIRUBIN, DIRECT 0.2 mg/dL (0.0-0.2); BILIRUBIN,INDIRECT 0.8 mg/dL (0.0-0.9); BUN/CREATININE RATIO 24.5; CALCIUM SERUM 9.4 mg/dL (8.4-10.2); GLOM FILT RATE Estimated 30.4 mL/min (>60); POTASSIUM 4.1 mmol/L (3.5-5.1); PROTEIN TOTAL SERUM 7.2 g/dL (6.0-8.3)
[2016-11-04 14:44] LABS: PLATELET ESTIMATE NORMAL (NORMAL); RBC NORMAL YES
[2016-11-04 15:36] LABS: URINE SOURCE CLEAN CATCH
[2016-11-04 15:41] LABS: URINE APPEARANCE CLOUDY; URINE BILIRUBIN NEG (NEG); URINE BLOOD NEG (NEG); URINE COLOR YELLOW; URINE GLUCOSE NEG (NEG); URINE KETONE TRACE (NEG); URINE LEUKOCYTE ESTERASE NEG (NEG); URINE NITRATE NEG (NEG); URINE PROTEIN 1+ (NEG); URINE SPECIFIC GRAVITY 1.024 (1.003-1.035)
[2016-11-04 15:44] LABS: URBCS1 AUWI 0-2 /[HPF] (0-2); URINE SQUAMOUS EPITHELIAL CELL OCC /[HPF]; UWBCS1 AUWI 0-2 (0-5)
[2016-11-04 15:58] LABS: URINE GRANULAR CAST 0-2 /[HPF]
[2016-11-04 15:59] LABS: URINE WHITE BLOOD CELL CAST 0-2 /[HPF]
[2016-11-04 16:00] LABS: CULTURE INDICATED? YES; URINE BACTERIA AUWI 1+ (NEGATIVE)
[2016-11-04 17:25] LABS: PROTHROMBIN TIME (PATIENT) 10.1 SECONDS (9.6-11.5)
[2016-11-04 17:35] LABS: ALBUMIN SERUM 3.2 g/dL (3.5-5.0); BILIRUBIN,TOTAL 0.7 mg/dL (0.2-2.0); BUN/CREATININE RATIO 29.41; CALCIUM SERUM 8.6 mg/dL (8.4-10.2); CREATININE SERUM 1.7 mg/dL (0.6-1.4); POTASSIUM 4.7 mmol/L (3.5-5.1); PROTEIN TOTAL SERUM 6.6 g/dL (6.0-8.3)
[2016-11-05 05:03] LABS: ALBUMIN SERUM 2.5 g/dL (3.5-5.0); BILIRUBIN,TOTAL 0.6 mg/dL (0.2-2.0); BUN/CREATININE RATIO 24.28; CALCIUM SERUM 7.8 mg/dL (8.4-10.2); CREATININE SERUM 2.1 mg/dL (0.6-1.4); GLOM FILT RATE Estimated 28.7 mL/min (>60); POTASSIUM 5.3 mmol/L (3.5-5.1); PROTEIN TOTAL SERUM 5.8 g/dL (6.0-8.3)
[2016-11-05 13:27] LABS: SODIUM URINE RANDOM 30 mmol/L
[2016-11-05 14:16] LABS: OSMOLALITY,URINE 462 mOsmo/kg (250-900)
[2016-11-05 15:22] LABS: ARTERIAL BLD GAS O2 SATURATION 99.9 % (90.0-100.0); ARTERIAL BLOOD GAS ALLEN TEST N; ARTERIAL BLOOD GAS ART SITE RIGHT RADIAL; ARTERIAL BLOOD GAS CARBOXY HB 0.2 %sat (0.0-9.0); ARTERIAL BLOOD GAS HCO3 20.4 mmol/L; ARTERIAL BLOOD GAS MET HB 1.1 %sat (0.0-2.0); ARTERIAL BLOOD GAS pH 7.126 (7.350-7.450); ARTERIAL DRAW? YES
[2016-11-05 19:18] LABS: BUN/CREATININE RATIO 20.33; CALCIUM SERUM 7.6 mg/dL (8.4-10.2); GLOM FILT RATE Estimated 18.6 mL/min (>60); POTASSIUM 5.4 mmol/L (3.5-5.1)
[2016-11-05 19:30] LABS: ARTERIAL BLOOD GAS PCO2 37.4 mmHg (35.0-45.0); ARTERIAL BLOOD GAS pH 7.329 (7.350-7.450)
[2016-11-05 19:31] LABS: ARTERIAL BLOOD GAS ALLEN TEST NORMAL; ARTERIAL BLOOD GAS ART SITE RIGHT RADIAL; ARTERIAL BLOOD GAS CARBOXY HB 0.1 %sat (0.0-9.0); ARTERIAL BLOOD GAS DELIVERY VENT; ARTERIAL BLOOD GAS HCO3 19.7 mmol/L; ARTERIAL BLOOD GAS MET HB 0.8 %sat (0.0-2.0); ARTERIAL BLOOD GAS VENT MODE AC; ARTERIAL DRAW? YES
[2016-11-06 03:56] LABS: HEMATOCRIT 24.8 % (38.0-50.0); LYMPHOCYTE# 0.4 X10e3 (1.0-3.5); LYMPHOCYTE% 2.7 % (17.0-45.0); MEAN CELL VOLUME 87.6 FL (83-96); MEAN CORPUSCULAR HEMOGLOBIN 28.6 PG (28-34); MEAN CORPUSCULAR HGB CONC 32.6 g/dL (30-36); MEAN PLATELET VOLUME 8.9 FL (6.5-11.5); MONOCYTE# 1.1 X10e3 (0-1.0); MONOCYTE% 8.2 % (3.0-12.0); NEUTROPHIL% 89.1 % (40-75); PLATELET COUNT 285 X10e3 (140-420); RED BLOOD COUNT 2.83 X10e (3.90-5.60); RED CELL DISTRIBUTION WIDTH 13.6 % (11.0-15.5); WHITE BLOOD COUNT 13.5 X10e3 (4.0-10.5)
[2016-11-06 04:03] LABS: ARTERIAL BLOOD GAS HCO3 20.1 mmol/L; ARTERIAL BLOOD GAS PCO2 33.2 mmHg (35.0-45.0); ARTERIAL BLOOD GAS pH 7.319 (7.350-7.450)
[2016-11-06 04:04] LABS: ARTERIAL BLD GAS O2 SATURATION 99.6 % (90.0-100.0); ARTERIAL BLOOD GAS ALLEN TEST NORMAL; ARTERIAL BLOOD GAS ART SITE RIGHT RADIAL; ARTERIAL BLOOD GAS CARBOXY HB 0.3 %sat (0.0-9.0); ARTERIAL BLOOD GAS DELIVERY VENT; ARTERIAL BLOOD GAS MET HB 0.9 %sat (0.0-2.0); ARTERIAL BLOOD GAS VENT MODE A/C; ARTERIAL DRAW? YES
[2016-11-06 04:27] LABS: ALBUMIN SERUM 1.9 g/dL (3.5-5.0); BILIRUBIN,TOTAL 0.4 mg/dL (0.2-2.0); BUN/CREATININE RATIO 21.42; CALCIUM SERUM 7.5 mg/dL (8.4-10.2); CREATININE SERUM 2.8 mg/dL (0.6-1.4); GLOM FILT RATE Estimated 20.2 mL/min (>60); MAGNESIUM 1.7 mg/dL (1.6-3.0); POTASSIUM 3.6 mmol/L (3.5-5.1); PROTEIN TOTAL SERUM 4.9 g/dL (6.0-8.3)
[2016-11-06 04:32] LABS: HEMOGLOBIN 8.1 gm/dL (13.0-16.0)
[2016-11-06 04:33] LABS: DIFF IND NO
[2016-11-06 05:00] LABS: THYROID STIMULATING HORMONE 1.56 uIU/ml (0.34-5.60)
[2016-11-06 15:07] LABS: ARTERIAL BLD GAS O2 SATURATION 99.3 % (90.0-100.0); ARTERIAL BLOOD GAS ALLEN TEST NORMAL; ARTERIAL BLOOD GAS ART SITE RIGHT RADIAL; ARTERIAL BLOOD GAS CARBOXY HB 0.2 %sat (0.0-9.0); ARTERIAL BLOOD GAS DELIVERY VENT; ARTERIAL BLOOD GAS HCO3 21.7 mmol/L; ARTERIAL BLOOD GAS MET HB 1.1 %sat (0.0-2.0); ARTERIAL BLOOD GAS PCO2 38.6 mmHg (35.0-45.0); ARTERIAL BLOOD GAS pH 7.359 (7.350-7.450); ARTERIAL DRAW? YES
[2016-11-06 15:08] LABS: ARTERIAL BLOOD GAS VENT MODE CPAP
[2016-11-06 20:25] LABS: POTASSIUM 3.9 mmol/L (3.5-5.1)
[2016-11-07 04:39] LABS: ARTERIAL BLD GAS O2 SATURATION 99.1 % (90.0-100.0); ARTERIAL BLOOD GAS CARBOXY HB 0.5 %sat (0.0-9.0); ARTERIAL BLOOD GAS HCO3 22.7 mmol/L; ARTERIAL BLOOD GAS MET HB 1.1 %sat (0.0-2.0); ARTERIAL BLOOD GAS PCO2 46.1 mmHg (35.0-45.0); ARTERIAL BLOOD GAS pH 7.302 (7.350-7.450)
[2016-11-07 04:40] LABS: ARTERIAL BLOOD GAS ALLEN TEST NORMAL; ARTERIAL BLOOD GAS ART SITE RIGHT RADIAL; ARTERIAL BLOOD GAS DELIVERY NASAL CANNULA; ARTERIAL DRAW? YES
[2016-11-07 06:00] LABS: HEMATOCRIT 22.9 % (38.0-50.0); HEMOGLOBIN 7.5 gm/dL (13.0-16.0); LYMPHOCYTE# 0.3 X10e3 (1.0-3.5); LYMPHOCYTE% 2.1 % (17.0-45.0); MEAN CELL VOLUME 88.6 FL (83-96); MEAN CORPUSCULAR HGB CONC 32.7 g/dL (30-36); MEAN PLATELET VOLUME 9.3 FL (6.5-11.5); MONOCYTE# 0.7 X10e3 (0-1.0); MONOCYTE% 5.1 % (3.0-12.0); NEUTROPHIL# 12.8 X10e3 (1.5-7.1); NEUTROPHIL% 92.8 % (40-75); PLATELET COUNT 251 X10e3 (140-420); RED BLOOD COUNT 2.59 X10e (3.90-5.60); RED CELL DISTRIBUTION WIDTH 14.1 % (11.0-15.5); WHITE BLOOD COUNT 13.8 X10e3 (4.0-10.5)
[2016-11-07 06:02] LABS: DIFF IND NO
[2016-11-07 06:31] LABS: ALBUMIN SERUM 1.7 g/dL (3.5-5.0); BILIRUBIN,TOTAL 0.5 mg/dL (0.2-2.0); BUN/CREATININE RATIO 27.64; CALCIUM SERUM 7.7 mg/dL (8.4-10.2); CREATININE SERUM 1.7 mg/dL (0.6-1.4); POTASSIUM 4.3 mmol/L (3.5-5.1); PROTEIN TOTAL SERUM 4.2 g/dL (6.0-8.3)
[2016-11-08 07:08] LABS: BASOPHIL% 0.1 % (0-2.5); HEMATOCRIT 23.9 % (38.0-50.0); HEMOGLOBIN 7.8 gm/dL (13.0-16.0); LYMPHOCYTE# 0.3 X10e3 (1.0-3.5); LYMPHOCYTE% 2.2 % (17.0-45.0); MEAN CELL VOLUME 86.6 FL (83-96); MEAN CORPUSCULAR HEMOGLOBIN 28.3 PG (28-34); MEAN CORPUSCULAR HGB CONC 32.6 g/dL (30-36); MEAN PLATELET VOLUME 8.4 FL (6.5-11.5); MONOCYTE# 0.9 X10e3 (0-1.0); MONOCYTE% 5.8 % (3.0-12.0); NEUTROPHIL# 13.9 X10e3 (1.5-7.1); NEUTROPHIL% 91.9 % (40-75); PLATELET COUNT 285 X10e3 (140-420); RED BLOOD COUNT 2.76 X10e (3.90-5.60); WHITE BLOOD COUNT 15.1 X10e3 (4.0-10.5)
[2016-11-08 07:10] LABS: BILIRUBIN,TOTAL 0.3 mg/dL (0.2-2.0); CALCIUM SERUM 8.3 mg/dL (8.4-10.2); CREATININE SERUM 1.4 mg/dL (0.6-1.4); DIFF IND YES; GLOM FILT RATE Estimated 46.8 mL/min (>60); POTASSIUM 3.4 mmol/L (3.5-5.1); PROTEIN TOTAL SERUM 5.2 g/dL (6.0-8.3)
[2016-11-08 09:46] LABS: PLATELET ESTIMATE NORMAL (NORMAL)
[2016-11-08 09:48] LABS: ANISOCYTOSIS SL; HYPOCHROMIA SL
[2016-11-08 15:26] LABS: URINE APPEARANCE CLEAR; URINE BILIRUBIN NEG (NEG); URINE BLOOD NEG (NEG); URINE COLOR YELLOW; URINE GLUCOSE NEG (NEG); URINE KETONE NEG (NEG); URINE LEUKOCYTE ESTERASE TRACE (NEG); URINE NITRATE NEG (NEG); URINE PH 5.5 (5-8); URINE PROTEIN TRACE (NEG); URINE SPECIFIC GRAVITY 1.019 (1.003-1.035); URINE UROBILINOGEN 0.2 MG/DL (NEG)
[2016-11-08 15:28] LABS: U HYALINE CASTS AUWI 0-2 /[LPF]; URINE BACTERIA AUWI NEG (NEGATIVE); URINE SQUAMOUS EPITHELIAL CELL NONE SEEN /[HPF]; UWBCS1 AUWI 0-2 (0-5)
[2016-11-08 15:29] LABS: CULTURE INDICATED? NO
[2016-11-09 05:37] LABS: HEMATOCRIT 19.6 % (38.0-50.0); MEAN CELL VOLUME 88.1 FL (83-96); MEAN CORPUSCULAR HEMOGLOBIN 27.7 PG (28-34); MEAN CORPUSCULAR HGB CONC 31.4 g/dL (30-36); MEAN PLATELET VOLUME 8.6 FL (6.5-11.5); RED BLOOD COUNT 2.23 X10e (3.90-5.60); RED CELL DISTRIBUTION WIDTH 13.8 % (11.0-15.5); WHITE BLOOD COUNT 19.7 X10e3 (4.0-10.5)
[2016-11-09 05:51] LABS: HEMOGLOBIN 6.2 gm/dL (13.0-16.0)
[2016-11-09 06:26] LABS: ALBUMIN SERUM 1.5 g/dL (3.5-5.0); BILIRUBIN,TOTAL 0.4 mg/dL (0.2-2.0); BUN/CREATININE RATIO 30.76; CALCIUM SERUM 7.6 mg/dL (8.4-10.2); CREATININE SERUM 1.3 mg/dL (0.6-1.4); GLOM FILT RATE Estimated 51.2 mL/min (>60); MAGNESIUM 1.7 mg/dL (1.6-3.0); PHOSPHOROUS 1.9 mg/dL (2.5-4.6); POTASSIUM 3.6 mmol/L (3.5-5.1); PROTEIN TOTAL SERUM 3.5 g/dL (6.0-8.3)
[2016-11-09 11:53] LABS: ARTERIAL BLOOD GAS HCO3 19.2 mmol/L
[2016-11-09 11:54] LABS: ARTERIAL BLOOD GAS ART SITE RIGHT BRACHIAL; ARTERIAL BLOOD GAS CARBOXY HB 0.3 %sat (0.0-9.0); ARTERIAL BLOOD GAS DELIVERY VENTURI MASK; ARTERIAL DRAW? YES
[2016-11-09 13:36] LABS: ARTERIAL BLOOD GAS HCO3 19.7 mmol/L; ARTERIAL BLOOD GAS PCO2 51.2 mmHg (35.0-45.0); ARTERIAL BLOOD GAS pH 7.194 (7.350-7.450)
[2016-11-09 13:37] LABS: ARTERIAL BLOOD GAS ART SITE ARTERIAL LINE; ARTERIAL BLOOD GAS CARBOXY HB 0.5 %sat (0.0-9.0); ARTERIAL BLOOD GAS DELIVERY VENT; ARTERIAL BLOOD GAS MET HB 1.1 %sat (0.0-2.0); ARTERIAL BLOOD GAS VENT MODE AC; ARTERIAL DRAW? YES
[2016-11-09 13:43] LABS: INR 1.3; PARTIAL THROMBOPLASTIN TIME 36.1 SECONDS (23.5-31.3); PROTHROMBIN TIME (PATIENT) 13.5 SECONDS (9.6-11.5)
[2016-11-09 13:58] LABS: BILIRUBIN,TOTAL 0.2 mg/dL (0.2-2.0); BUN/CREATININE RATIO 28.12; CREATININE SERUM 1.6 mg/dL (0.6-1.4); GLOM FILT RATE Estimated 39.8 mL/min (>60); POTASSIUM 4.4 mmol/L (3.5-5.1)
[2016-11-09 14:01] LABS: PROTEIN TOTAL SERUM 2.7 g/dL (6.0-8.3)
[2016-11-09 14:26] LABS: BASOPHIL% 0.1 % (0-2.5); EOSINOPHIL# 0.1 X10e3 (0-0.7); EOSINOPHIL% 0.4 % (0.0-7.0); HEMATOCRIT 19.2 % (38.0-50.0); LYMPHOCYTE% 10.8 % (17.0-45.0); MEAN CORPUSCULAR HEMOGLOBIN 29.5 PG (28-34); MEAN PLATELET VOLUME 8.9 FL (6.5-11.5); MONOCYTE# 1.6 X10e3 (0-1.0); MONOCYTE% 8.6 % (3.0-12.0); NEUTROPHIL# 15.2 X10e3 (1.5-7.1); NEUTROPHIL% 80.1 % (40-75); PLATELET COUNT 186 X10e3 (140-420); RED BLOOD COUNT 2.08 X10e (3.90-5.60); RED CELL DISTRIBUTION WIDTH 14.1 % (11.0-15.5); WHITE BLOOD COUNT 18.9 X10e3 (4.0-10.5)
[2016-11-09 14:27] LABS: DIFF IND YES; HEMOGLOBIN 6.1 gm/dL (13.0-16.0); MEAN CELL VOLUME 92.3 FL (83-96)
[2016-11-09 15:22] LABS: PLATELET ESTIMATE NORMAL (NORMAL)
[2016-11-09 15:23] LABS: STOMATOCYTE PRESENT
[2016-11-09 15:31] LABS: ARTERIAL BLD GAS O2 SATURATION 98.7 % (90.0-100.0); ARTERIAL BLOOD GAS CARBOXY HB 0.2 %sat (0.0-9.0); ARTERIAL BLOOD GAS MET HB 0.7 %sat (0.0-2.0); ARTERIAL BLOOD GAS pH 7.223 (7.350-7.450); ARTERIAL DRAW? YES
[2016-11-09 15:32] LABS: ARTERIAL BLOOD GAS ART SITE ARTERIAL LINE; ARTERIAL BLOOD GAS DELIVERY VENT; ARTERIAL BLOOD GAS VENT MODE AC
[2016-11-09 17:55] LABS: BUN/CREATININE RATIO 26.66; CALCIUM SERUM 6.3 mg/dL (8.4-10.2); CREATININE SERUM 1.8 mg/dL (0.6-1.4); GLOM FILT RATE Estimated 34.5 mL/min (>60); POTASSIUM 4.4 mmol/L (3.5-5.1)
[2016-11-09 19:12] LABS: HEMATOCRIT 34.2 % (38.0-50.0); HEMOGLOBIN 11.3 gm/dL (13.0-16.0)
[2016-11-09 20:01] LABS: BASOPHIL% 0.2 % (0-2.5); EOSINOPHIL% 0.1 % (0.0-7.0); HEMATOCRIT 28.8 % (38.0-50.0); HEMOGLOBIN 9.8 gm/dL (13.0-16.0); LYMPHOCYTE# 1.2 X10e3 (1.0-3.5); LYMPHOCYTE% 4.7 % (17.0-45.0); MEAN CELL VOLUME 87.9 FL (83-96); MEAN CORPUSCULAR HEMOGLOBIN 29.8 PG (28-34); MEAN CORPUSCULAR HGB CONC 33.9 g/dL (30-36); MEAN PLATELET VOLUME 8.4 FL (6.5-11.5); MONOCYTE# 3.2 X10e3 (0-1.0); MONOCYTE% 12.4 % (3.0-12.0); NEUTROPHIL# 21.4 X10e3 (1.5-7.1); NEUTROPHIL% 82.6 % (40-75); PLATELET COUNT 168 X10e3 (140-420); RED BLOOD COUNT 3.28 X10e (3.90-5.60); RED CELL DISTRIBUTION WIDTH 14.3 % (11.0-15.5); WHITE BLOOD COUNT 25.9 X10e3 (4.0-10.5)
[2016-11-09 20:02] LABS: DIFF IND NO
[2016-11-09 20:26] LABS: ALBUMIN SERUM 1.8 g/dL (3.5-5.0); BILIRUBIN,TOTAL 1.1 mg/dL (0.2-2.0); BUN/CREATININE RATIO 22.38; CALCIUM SERUM 6.5 mg/dL (8.4-10.2); CREATININE SERUM 2.1 mg/dL (0.6-1.4); GLOM FILT RATE Estimated 28.7 mL/min (>60); PROTEIN TOTAL SERUM 3.8 g/dL (6.0-8.3)
[2016-11-09 20:49] LABS: %MB 7.8 % (0.0-4.0); MB 34.9 ng/ml
[2016-11-09 22:32] LABS: HEMATOCRIT 24.1 % (38.0-50.0)
[2016-11-10 04:24] LABS: ARTERIAL BLD GAS O2 SATURATION 96.5 % (90.0-100.0); ARTERIAL BLOOD GAS HCO3 24.8 mmol/L; ARTERIAL BLOOD GAS PCO2 45.5 mmHg (35.0-45.0); ARTERIAL BLOOD GAS PO2 77.5 mmHg (80.0-100); ARTERIAL BLOOD GAS pH 7.344 (7.350-7.450)
[2016-11-10 04:25] LABS: ARTERIAL BLOOD GAS ART SITE ARTERIAL LINE; ARTERIAL BLOOD GAS DELIVERY VENT; ARTERIAL BLOOD GAS MET HB 1.3 %sat (0.0-2.0); ARTERIAL BLOOD GAS VENT MODE AC; ARTERIAL DRAW? YES
[2016-11-10 05:16] LABS: BASOPHIL% 0.1 % (0-2.5); HEMATOCRIT 31.3 % (38.0-50.0); LYMPHOCYTE# 1.3 X10e3 (1.0-3.5); LYMPHOCYTE% 8.2 % (17.0-45.0); MEAN CORPUSCULAR HEMOGLOBIN 29.1 PG (28-34); MEAN CORPUSCULAR HGB CONC 34.6 g/dL (30-36); MEAN PLATELET VOLUME 8.3 FL (6.5-11.5); MONOCYTE# 2.6 X10e3 (0-1.0); MONOCYTE% 16.5 % (3.0-12.0); NEUTROPHIL# 11.8 X10e3 (1.5-7.1); NEUTROPHIL% 75.2 % (40-75); PLATELET COUNT 122 X10e3 (140-420); RED BLOOD COUNT 3.72 X10e (3.90-5.60); RED CELL DISTRIBUTION WIDTH 16.3 % (11.0-15.5); WHITE BLOOD COUNT 15.6 X10e3 (4.0-10.5)
[2016-11-10 05:21] LABS: HEMOGLOBIN 10.8 gm/dL (13.0-16.0); MEAN CELL VOLUME 84.1 FL (83-96)
[2016-11-10 05:22] LABS: DIFF IND NO
[2016-11-10 06:08] LABS: BUN/CREATININE RATIO 23.6; CALCIUM SERUM 6.8 mg/dL (8.4-10.2); CREATININE SERUM 2.5 mg/dL (0.6-1.4); GLOM FILT RATE Estimated 23.2 mL/min (>60); MAGNESIUM 1.6 mg/dL (1.6-3.0); POTASSIUM 4.1 mmol/L (3.5-5.1)
[2016-11-10 11:44] LABS: ARTERIAL BLD GAS O2 SATURATION 96.6 % (90.0-100.0); ARTERIAL BLOOD GAS CARBOXY HB 0.7 %sat (0.0-9.0); ARTERIAL BLOOD GAS HCO3 24.2 mmol/L; ARTERIAL BLOOD GAS PCO2 45.2 mmHg (35.0-45.0); ARTERIAL BLOOD GAS PO2 80.8 mmHg (80.0-100); ARTERIAL BLOOD GAS pH 7.337 (7.350-7.450)
[2016-11-10 11:45] LABS: ARTERIAL BLOOD GAS ALLEN TEST NORMAL; ARTERIAL BLOOD GAS ART SITE ARTERIAL LINE; ARTERIAL BLOOD GAS VENT MODE A/C; ARTERIAL DRAW? YES
[2016-11-10 13:30] LABS: HEMATOCRIT 32.6 % (38.0-50.0); HEMOGLOBIN 10.9 gm/dL (13.0-16.0)
[2016-11-10 17:16] LABS: ARTERIAL BLOOD GAS CARBOXY HB 0.4 %sat (0.0-9.0); ARTERIAL BLOOD GAS HCO3 22.1 mmol/L; ARTERIAL BLOOD GAS PCO2 42.8 mmHg (35.0-45.0); ARTERIAL BLOOD GAS pH 7.321 (7.350-7.450); ARTERIAL DRAW? YES
[2016-11-10 17:17] LABS: ARTERIAL BLOOD GAS ART SITE ARTERIAL LINE; ARTERIAL BLOOD GAS VENT MODE AC
[2016-11-10 20:08] LABS: HEMATOCRIT 32.5 % (38.0-50.0); HEMOGLOBIN 10.8 gm/dL (13.0-16.0)
[2016-11-11 03:56] LABS: BASOPHIL% 0.1 % (0-2.5); EOSINOPHIL% 0.1 % (0.0-7.0); HEMATOCRIT 29.4 % (38.0-50.0); HEMOGLOBIN 9.8 gm/dL (13.0-16.0); LYMPHOCYTE# 0.7 X10e3 (1.0-3.5); LYMPHOCYTE% 2.9 % (17.0-45.0); MEAN CELL VOLUME 84.7 FL (83-96); MEAN CORPUSCULAR HEMOGLOBIN 28.3 PG (28-34); MEAN CORPUSCULAR HGB CONC 33.4 g/dL (30-36); MEAN PLATELET VOLUME 8.8 FL (6.5-11.5); MONOCYTE# 1.8 X10e3 (0-1.0); MONOCYTE% 7.3 % (3.0-12.0); NEUTROPHIL# 22.5 X10e3 (1.5-7.1); NEUTROPHIL% 89.6 % (40-75); PLATELET COUNT 153 X10e3 (140-420); RED BLOOD COUNT 3.47 X10e (3.90-5.60); RED CELL DISTRIBUTION WIDTH 17.5 % (11.0-15.5); WHITE BLOOD COUNT 25.1 X10e3 (4.0-10.5)
[2016-11-11 03:57] LABS: DIFF IND NO
[2016-11-11 04:22] LABS: ALBUMIN SERUM 1.7 g/dL (3.5-5.0); BILIRUBIN, DIRECT 0.2 mg/dL (0.0-0.2); BUN/CREATININE RATIO 20.24; CALCIUM SERUM 7.1 mg/dL (8.4-10.2); CREATININE SERUM 4.1 mg/dL (0.6-1.4); GLOM FILT RATE Estimated 12.8 mL/min (>60); MAGNESIUM 1.8 mg/dL (1.6-3.0); POTASSIUM 4.4 mmol/L (3.5-5.1); PROTEIN TOTAL SERUM 3.7 g/dL (6.0-8.3)
[2016-11-11 04:24] LABS: ARTERIAL BLD GAS O2 SATURATION 98.7 % (90.0-100.0); ARTERIAL BLOOD GAS CARBOXY HB 0.5 %sat (0.0-9.0); ARTERIAL BLOOD GAS HCO3 22.5 mmol/L; ARTERIAL BLOOD GAS MET HB 1.1 %sat (0.0-2.0); ARTERIAL BLOOD GAS PCO2 48.1 mmHg (35.0-45.0)
[2016-11-11 04:25] LABS: ARTERIAL BLOOD GAS ART SITE ARTERIAL LINE; ARTERIAL BLOOD GAS DELIVERY VENT; ARTERIAL BLOOD GAS VENT MODE AC; ARTERIAL DRAW? YES
[2016-11-11 12:32] LABS: INR 1.2; PARTIAL THROMBOPLASTIN TIME 31.7 SECONDS (23.5-31.3); PROTHROMBIN TIME (PATIENT) 12.9 SECONDS (10.0-11.7)
[2016-11-12 05:02] LABS: ARTERIAL BLD GAS O2 SATURATION 96.2 % (90.0-100.0); ARTERIAL BLOOD GAS ART SITE ARTERIAL LINE; ARTERIAL BLOOD GAS CARBOXY HB 0.6 %sat (0.0-9.0); ARTERIAL BLOOD GAS DELIVERY VENT; ARTERIAL BLOOD GAS HCO3 25.9 mmol/L; ARTERIAL BLOOD GAS MET HB 1.2 %sat (0.0-2.0); ARTERIAL BLOOD GAS PCO2 57.8 mmHg (35.0-45.0); ARTERIAL BLOOD GAS PO2 86.6 mmHg (80.0-100); ARTERIAL BLOOD GAS VENT MODE AC; ARTERIAL BLOOD GAS pH 7.259 (7.350-7.450); ARTERIAL DRAW? YES
[2016-11-12 05:32] LABS: EOSINOPHIL# 0.1 X10e3 (0-0.7); EOSINOPHIL% 0.4 % (0.0-7.0); HEMATOCRIT 26.5 % (38.0-50.0); HEMOGLOBIN 8.7 gm/dL (13.0-16.0); LYMPHOCYTE# 0.9 X10e3 (1.0-3.5); LYMPHOCYTE% 3.9 % (17.0-45.0); MEAN CELL VOLUME 87.6 FL (83-96); MEAN CORPUSCULAR HEMOGLOBIN 28.6 PG (28-34); MEAN CORPUSCULAR HGB CONC 32.7 g/dL (30-36); MEAN PLATELET VOLUME 8.9 FL (6.5-11.5); MONOCYTE# 1.3 X10e3 (0-1.0); MONOCYTE% 5.9 % (3.0-12.0); NEUTROPHIL# 20.4 X10e3 (1.5-7.1); NEUTROPHIL% 89.8 % (40-75); PLATELET COUNT 152 X10e3 (140-420); RED BLOOD COUNT 3.02 X10e (3.90-5.60); RED CELL DISTRIBUTION WIDTH 17.1 % (11.0-15.5); WHITE BLOOD COUNT 22.7 X10e3 (4.0-10.5)
[2016-11-12 05:41] LABS: DIFF IND NO
[2016-11-12 06:49] LABS: ALBUMIN SERUM 1.8 g/dL (3.5-5.0); BILIRUBIN,TOTAL 0.6 mg/dL (0.2-2.0); BUN/CREATININE RATIO 19.71; CALCIUM SERUM 7.4 mg/dL (8.4-10.2); CREATININE SERUM 3.5 mg/dL (0.6-1.4); GLOM FILT RATE Estimated 15.5 mL/min (>60); MAGNESIUM 1.8 mg/dL (1.6-3.0); PHOSPHOROUS 4.8 mg/dL (2.5-4.6); POTASSIUM 4.4 mmol/L (3.5-5.1); PROTEIN TOTAL SERUM 3.9 g/dL (6.0-8.3)
[2016-11-13 02:24] LABS: ARTERIAL BLD GAS O2 SATURATION 97.2 % (90.0-100.0); ARTERIAL BLOOD GAS ART SITE ARTERIAL LINE; ARTERIAL BLOOD GAS CARBOXY HB 0.6 %sat (0.0-9.0); ARTERIAL BLOOD GAS HCO3 22.7 mmol/L; ARTERIAL BLOOD GAS MET HB 1.2 %sat (0.0-2.0); ARTERIAL BLOOD GAS PCO2 63.1 mmHg (35.0-45.0); ARTERIAL BLOOD GAS PO2 96.1 mmHg (80.0-100); ARTERIAL BLOOD GAS pH 7.165 (7.350-7.450); ARTERIAL DRAW? YES
[2016-11-13 02:25] LABS: ARTERIAL BLOOD GAS DELIVERY VENT; ARTERIAL BLOOD GAS VENT MODE AC
[2016-11-13 02:52] LABS: BASOPHIL% 0.1 % (0-2.5); EOSINOPHIL% 0.2 % (0.0-7.0); LYMPHOCYTE% 4.9 % (17.0-45.0); MEAN CELL VOLUME 86.9 FL (83-96); MEAN CORPUSCULAR HGB CONC 32.2 g/dL (30-36); MEAN PLATELET VOLUME 8.6 FL (6.5-11.5); MONOCYTE# 0.9 X10e3 (0-1.0); MONOCYTE% 4.3 % (3.0-12.0); NEUTROPHIL# 18.1 X10e3 (1.5-7.1); NEUTROPHIL% 90.5 % (40-75); PLATELET COUNT 111 X10e3 (140-420); RED BLOOD COUNT 1.38 X10e (3.90-5.60); RED CELL DISTRIBUTION WIDTH 16.9 % (11.0-15.5)
[2016-11-13 02:53] LABS: DIFF IND YES; HEMOGLOBIN 3.9 gm/dL (13.0-16.0)
[2016-11-13 03:13] LABS: ALBUMIN SERUM 1.2 g/dL (3.5-5.0); BILIRUBIN,TOTAL 0.8 mg/dL (0.2-2.0); BUN/CREATININE RATIO 17.42; CREATININE SERUM 3.5 mg/dL (0.6-1.4); GLOM FILT RATE Estimated 15.5 mL/min (>60); MAGNESIUM 1.6 mg/dL (1.6-3.0); PHOSPHOROUS 4.8 mg/dL (2.5-4.6); POTASSIUM 3.9 mmol/L (3.5-5.1)
[2016-11-13 03:16] LABS: CALCIUM SERUM 5.8 mg/dL (8.4-10.2)
[2016-11-13 03:21] LABS: ANISOCYTOSIS SL; NUCLEATED RED BLOOD CELL 5 /100 (0); PLATELET ESTIMATE DECREASED (NORMAL)
[2016-11-13 03:34] LABS: %MB 1.7 % (0.0-4.0); MB 3.1 ng/ml
[2016-11-13 05:24] LABS: ARTERIAL BLOOD GAS PCO2 86.7 mmHg (35.0-45.0); ARTERIAL BLOOD GAS pH 7.062 (7.350-7.450)
[2016-11-13 05:25] LABS: ARTERIAL BLD GAS O2 SATURATION 99.7 % (90.0-100.0); ARTERIAL BLOOD GAS ART SITE ARTERIAL LINE; ARTERIAL BLOOD GAS CARBOXY HB 0.3 %sat (0.0-9.0); ARTERIAL BLOOD GAS DELIVERY VENT; ARTERIAL BLOOD GAS HCO3 24.6 mmol/L; ARTERIAL BLOOD GAS MET HB 1.1 %sat (0.0-2.0); ARTERIAL DRAW? YES
[2016-11-13 05:26] LABS: ARTERIAL BLOOD GAS VENT MODE AC
[2016-11-13 07:42] LABS: BASOPHIL% 0.2 % (0-2.5); EOSINOPHIL% 0.1 % (0.0-7.0); HEMATOCRIT 20.8 % (38.0-50.0); LYMPHOCYTE# 0.4 X10e3 (1.0-3.5); LYMPHOCYTE% 2.6 % (17.0-45.0); MEAN CORPUSCULAR HEMOGLOBIN 28.5 PG (28-34); MEAN CORPUSCULAR HGB CONC 31.2 g/dL (30-36); MEAN PLATELET VOLUME 9.6 FL (6.5-11.5); MONOCYTE# 1.1 X10e3 (0-1.0); MONOCYTE% 6.2 % (3.0-12.0); NEUTROPHIL# 15.8 X10e3 (1.5-7.1); NEUTROPHIL% 90.9 % (40-75); RED BLOOD COUNT 2.28 X10e (3.90-5.60); WHITE BLOOD COUNT 17.3 X10e3 (4.0-10.5)
[2016-11-13 07:55] LABS: HEMOGLOBIN 6.5 gm/dL (13.0-16.0); MEAN CELL VOLUME 91.6 FL (83-96)
[2016-11-13 07:57] LABS: DIFF IND NO
[2016-11-13 08:23] LABS: ALKALINE PHOSPHATASE 94 U/L (32-92); ALT (SGPT) 160 U/L (10-40); AST (SGOT) 393 U/L (10-42); BILIRUBIN,TOTAL 0.8 mg/dL (0.2-2.0); BLOOD UREA NITROGEN 59 mg/dL (9-23); BUN/CREATININE RATIO 15.52; CARBON DIOXIDE 24 mmol/L (22-31); CHLORIDE 110 mmol/L (100-111); CREATININE SERUM 3.8 mg/dL (0.6-1.4); GLUCOSE FASTING 357 mg/dL (70-110); POTASSIUM 4.1 mmol/L (3.5-5.1)
[2016-11-13 08:28] LABS: PLATELET COUNT 54 X10e3 (140-420)
[2016-11-13 08:30] LABS: SODIUM 139 mmol/L (135-145)
[2016-11-13 08:31] LABS: ALBUMIN SERUM <1.0 g/dL (3.5-5.0); CALCIUM SERUM 5.6 mg/dL (8.4-10.2)
== END 2016-11-13 16:42 | disposition expired | DRG 417 ==
LOC: CED 12:05 → C4C 16:00 → CEDOF 16:00 → C3A PCU 16:00 → CEDOF 16:46 → CED 16:46 → C4C 16:46 → CEDOF 18:40 → CICCU2 11-05 17:10 → C3A PCU 11-07 14:31 → CICCU2 11-09 11:39
PROVIDERS: Anesthesiology; Emergency Medicine; Internal Medicine; Internal Medicine Nephrology; Internal Medicine Pulmonary Disease; Psychiatry & Neurology Psychiatry; Specialist; Surgery
PROC: 0FT44ZZ Resection of Gallbladder, Percutaneous Endoscopic Approach (ICD-10-PCS; 2016-11-05)
PROC: 0F9040Z Drainage of Liver with Drainage Device, Percutaneous Endoscopic Approach (ICD-10-PCS; 2016-11-05)
PROC: 5A1945Z Respiratory Ventilation, 24-96 Consecutive Hours (ICD-10-PCS; 2016-11-05)
PROC: 5A1955Z Respiratory Ventilation, Greater than 96 Consecutive Hours (ICD-10-PCS; 2016-11-09)
PROC: 0D9680Z Drainage of Stomach with Drainage Device, Via Natural or Artificial Opening Endoscopic (ICD-10-PCS; 2016-11-09)
PROC: 0BH18EZ Insertion of Endotracheal Airway into Trachea, Via Natural or Artificial Opening Endoscopic (ICD-10-PCS; 2016-11-09)
PROC: 30233N1 Transfusion of Nonautologous Red Blood Cells into Peripheral Vein, Percutaneous Approach (ICD-10-PCS; 2016-11-09)
PROC: 30233L1 Transfusion of Nonautologous Fresh Plasma into Peripheral Vein, Percutaneous Approach (ICD-10-PCS; 2016-11-09)
PROC: 30233K1 Transfusion of Nonautologous Frozen Plasma into Peripheral Vein, Percutaneous Approach (ICD-10-PCS; 2016-11-09)
PROC: B24BYZZ Ultrasonography of Heart with Aorta using Other Contrast (ICD-10-PCS; 2016-11-09)
PROC: 0DJ08ZZ Inspection of Upper Intestinal Tract, Via Natural or Artificial Opening Endoscopic (ICD-10-PCS; principal; 2016-11-09 15:30)
PROC: 03HC33Z Insertion of Infusion Device into Left Radial Artery, Percutaneous Approach (ICD-10-PCS; 2016-11-10)
PROC: 05HN33Z Insertion of Infusion Device into Left Internal Jugular Vein, Percutaneous Approach (ICD-10-PCS; 2016-11-10)
PROC: B544ZZA Ultrasonography of Left Jugular Veins, Guidance (ICD-10-PCS; 2016-11-10)
PROC: 05HM33Z Insertion of Infusion Device into Right Internal Jugular Vein, Percutaneous Approach (ICD-10-PCS; 2016-11-11)
PROC: B543ZZA Ultrasonography of Right Jugular Veins, Guidance (ICD-10-PCS; 2016-11-11)
PROC: 5A1D60Z (ICD-10-PCS; 2016-11-11)
DX: K80.00 Calculus of gallbladder with acute cholecystitis without obstruction (principal); J95.821 Acute postprocedural respiratory failure; N17.0 Acute kidney failure with tubular necrosis; J69.0 Pneumonitis due to inhalation of food and vomit; I21.4 Non-ST elevation (NSTEMI) myocardial infarction; A41.9 Sepsis, unspecified organism; E87.4 Mixed disorder of acid-base balance; E87.1 Hypo-osmolality and hyponatremia; D62 Acute posthemorrhagic anemia; K75.0 Abscess of liver; T81.12XA Postprocedural septic shock, initial encounter; T81.19XA Other postprocedural shock, initial encounter; T81.4XXA Infection following a procedure, initial encounter; K92.2 Gastrointestinal hemorrhage, unspecified; J44.9 Chronic obstructive pulmonary disease, unspecified; E78.5 Hyperlipidemia, unspecified; K21.9 Gastro-esophageal reflux disease without esophagitis; Z87.891 Personal history of nicotine dependence; Z88.0 Allergy status to penicillin; Y83.8 Other surgical procedures as the cause of abnormal reaction of the patient, or of later complication, without mention of misadventure at the time of the procedure; E87.5 Hyperkalemia; K22.70 Barrett's esophagus without dysplasia; I46.9 Cardiac arrest, cause unspecified; I95.81 Postprocedural hypotension; N18.3 Chronic kidney disease, stage 3 (moderate); E87.6 Hypokalemia; R00.1 Bradycardia, unspecified; Z51.5 Encounter for palliative care; Z66 Do not resuscitate
CPT/HCPCS: 36415; 36600; 70450; 71010; 74176; 76705; 80048; 80053; 80076; 80202; 81003; 82248; 82533; 82550; 82553; 82803; 82947; 83605; 83690; 83735; 83935; 84100; 84132; 84300; 84443; 84484; 85014; 85018; 85025; 85027; 85610; 85730; 86334; 86335; 86850; 86900; 86901; 86923; 87040; 87070; 87077; 87086; 87186; 87205; 87340; 88304; 89190; 92950; 93005; 93306; 94002; 94003; 94640; 94760; 94761; 96361; 96374; 96375; 97110; 97116; 97162; 97165; 97166; 97535; 99285; C1750; C9113; G8978-GP; G8979-GP; G8987-GO; G8988-GO; J0171; J0610; J0696; J1100; J1644; J1720; J1815; J2250; J2270; J2310; J2354; J2370; J2405; J2550; J2710; J3010; J3370; J3475; P9016; P9047; P9059; Q4081